=== PATIENT | female | born 1955 | race Caucasian/White ===

== ENCOUNTER 2016-12-23 19:30 | Observation (INO) | payer BC ==
[~2016-12-23] VITALS: Ht 160 cm; Wt 95.8 kg
[~2016-12-23 19:30] MED LIST: ACET-2321 PO; ALBU8.5H3 INH; ALLO300T74 PO; ENAL5TAB85 PO; FLUT16SP2 EA NOSTRIL; MELO-267 PO; OXYC-544 PO; POTA10CA37 PO; VENL100T4 PO; [UNRECOGNIZED DRUG - CODE] PO
--- OUTSIDE RECORDS SUMMARY | 2016-12-23 20:37 | XMS REPORT | CCD ---
Author Author IGLESIA ROCHA Organization Unknown Address [address], [place] [id number] Phone 0 Care Team Providers Care Credit Representative Name Role Phone DOLLY PINTO Attending Physician 0 Vital Signs Unknown or Not Available. Allergies Allergy Code Allergy Type Reaction Status PENICILLIN 99651 Drug allergy Active Procedures Unknown or Not Available. History of Immunizations Immunization Code Date influenza, unspecified formulation 88 Problems Unknown or Not Available. Results UA AUTO W/ MICRO - Collect Date/Time: 07/26/2016 14:54 Test Name Code Test Result Test Units Test Ref Range COLOR Yellow N/A NORMAL: Yellow APPEARANCE Clear N/ A NORMAL: Clear GLUCOSE Negative N/ A NORMAL: Negative BILIRUBIN Negative N /A NORMAL: Negative KETONE Negative N/A NORMAL: Negative SPEC GRAVITY 1.025 N /A NORMAL: 1.005-1.030 BLOOD Negative N/A NORMAL: Negative PROTEIN Negative N/ A NORMAL: Negative PH 5.5 N/A NORMAL: 5.0-8.0 UROBILINOGEN 0.2 N/ A NORMAL: Negative NITRITE Negative N/ A NORMAL: Negative LEUKOCYTES Negative N/A NORMAL: Negative MICRO RBC None Seen N/A NORMAL: 0-2 MICRO WBC 0-2 N/A NORMAL: 0-2 BACTERIA Trace N/A NORMAL: None-Trace EPI CELLS 0-5 N/A NORMAL: 0-15 MUCUS None Seen N/A NORMAL: None-Small AMORPHOUS None Seen N/A NORMAL: None Seen YEAST None Seen N/A NORMAL: None Seen CRYSTALS None Seen N /A NORMAL: None Seen CAST None Seen N/A NORMAL: None Seen URINE CULTURE? NO N/ A Active Medications Unknown or Not Available. Medications Administered During Visit Unknown or Not Available. Encounters Encounter Diagnosis Diagnosis Code Start Date Dysuria R300 07/26/2016 Social History Smoking Status Code Start Date End Date Never smoker [id number] Patient Decision Aids Unknown or Not Available. Discharge Instructions You were admitted to [facility] on 07/26/2016 14:51 with a principal diagnosis of Dysuria You had the following tests done: UA AUTO W/ MICRO You were discharged from [facility] on 07/26/2016 14:51 Should you have any questions prior to discharge, please contact a member of your healthcare team. If you have left the hospital and have any questions, please contact your primary care physician. Chief Complaint and Reason For Visit Chief Complaint Date of Onset LAB Function Status Unknown or Not Available. Plan of Care Unknown or Not Available. Referral/Transition of Care Unknown or Not Available.
--- OUTSIDE RECORDS SUMMARY | 2016-12-23 20:37 | XMS REPORT | CCD ---
Author Author IGLESIA ROCHA Organization Unknown Address [address], [place] [id number] Phone 0 Care Team Providers Care Tank House Supervisor Name Role Phone DOLLY PINTO Attending Physician 0 [place] LAW Physician [phone] Vital Signs Unknown or Not Available. Allergies Allergy Code Allergy Type Reaction Status PENICILLIN 34240 Drug allergy Active Procedures Procedure Code Procedure Type Date CHEST [id number] 03/09/2016 History of Immunizations Immunization Code Date influenza, unspecified formulation 88 Problems Unknown or Not Available. Results BASIC METABOLIC - Collect Date/Time: 03/09/2016 11:25 Test Name Code Test Result Test Units Test Ref Range GLUCOSE 125 mg/dL L=70 H=110 BUN 17 mg/dL L=7 H=18 CREATININE 1.22 mg/ dL L=0.60 H=1.30 AGE 60 YEARS GFR 44.7 SODIUM 138 mmol/L L=136 H=145 POTASSIUM 4.4 mmol/ L L=3.5 H=5.1 CHLORIDE 101 mmol/L L=98 H=107 CO2 26 mmol/L L=21 H=32 CALCIUM 8.5 mg/dL L=8.5 H=10.1 CBC W/ DIFF - Collect Date/Time: 03/09/2016 11:25 Test Name Code Test Result Test Units Test Ref Range WBC 17.2 x10^3 L=4.8 H=10.8 RBC 4.28 x10^6 L=4.20 H=5.40 HEMOGLOBIN 13.3 g/ dL L=12.0 H=16.0 HEMATOCRIT 40.7 % L=37.0 H=47.0 MCV 95 fL L=80 H=100 MCH 31.1 pg L=27.0 H=33.0 MCHC 32.8 g/dL L=33.0 H=37.0 RDW 15.0 % L=11.5 H=14.5 PLATELETS 477 x10^3 L=150 H=450 MPV 6.0 fL L=7.8 H=11.0 SEG 73 %% L=40 H=80 BAND 6 %% L=0 H=5 LYMPH 10 %% L=20 H=45 MONO 7 %% L=0 H=10 EOS 2 %% L=0 H=5 BASO 2 %% L=0 H=2 ATYP LYMPH 0 %% L=0 H=10 META 0 %% L=0 H=1 REFLEX MAN DIFF YES N/A RBC MORPHOLOGY SEE BELOW N/A ANISO SLIGHT N/A NORMAL: NONE SEEN POIK NONE SEEN N/A NORMAL: NONE SEEN HYPO SLIGHT N/A NORMAL: NONE SEEN MICRO NONE SEEN N/A NORMAL: NONE SEEN MACRO NONE SEEN N/A NORMAL: NONE SEEN POLY NONE SEEN N/A NORMAL: NONE SEEN TOXIC GRAN NONE SEEN N/A NORMAL: NONE SEEN NUCLEATED RBC NONE SEEN N/A NORMAL: NONE SEEN PT/INR - Collect Date/Time: 03/09/2016 11:25 Test Name Code Test Result Test Units Test Ref Range PT 9.3 Secs L=9.4 H=11.0 INR 0.91 L=0.00 H=4.00 UA AUTO W/ MICRO - Collect Date/Time: 03/09/2016 11:30 Test Name Code Test Result Test Units Test Ref Range COLOR Yellow N/A NORMAL: Yellow APPEARANCE SlCloudy N/A NORMAL: Clear GLUCOSE Negative N/ A NORMAL: Negative BILIRUBIN Small N/A NORMAL: Negative KETONE Trace N/A NORMAL: Negative SPEC GRAVITY 1.020 N /A NORMAL: 1.005-1.030 BLOOD Negative N/A NORMAL: Negative PROTEIN 100 N/A NORMAL: Negative PH 6.0 N/A NORMAL: 5.0-8.0 UROBILINOGEN 0.2 N/ A NORMAL: Negative NITRITE Negative N/ A NORMAL: Negative LEUKOCYTES Negative N/A NORMAL: Negative MICRO RBC 0-2 N/A NORMAL: 0-2 MICRO WBC 0-2 N/A NORMAL: 0-2 BACTERIA 3+ N/A NORMAL: None-Trace EPI CELLS >30 N/A NORMAL: 0-15 MUCUS Trace N/A NORMAL: None-Small AMORPHOUS None Seen N/A NORMAL: None Seen YEAST None Seen N/A NORMAL: None Seen CRYSTALS None Seen N /A NORMAL: None Seen CAST Hyaline C N/A NORMAL: None Seen URINE CULTURE? NO N/ A VITAMIN D (25-HYDROXY) - Collect Date/Time: 03/09/2016 11:25 Test Name Code Test Result Test Units Test Ref Range Vitamin D, 25-Hydroxy 36567-7 26.2 ng/mL 30.0-100.0 Active Medications Unknown or Not Available. Medications Administered During Visit Unknown or Not Available. Encounters Encounter Diagnosis Diagnosis Code Start Date Encounter for other preprocedural examination [id number] 03/09/2016 Social History Smoking Status Code Start Date End Date Never smoker [id number] Patient Decision Aids Unknown or Not Available. Discharge Instructions You were admitted to [facility] on 03/09/2016 11:15 with a principal diagnosis of Encounter for other preprocedural examination You had the following tests done: BASIC METABOLIC CBC W/ DIFF PT/INR UA AUTO W/ MICRO VITAMIN D (25-HYDROXY) You were discharged from [facility] on 03/09/2016 11:15 Should you have any questions prior to discharge, please contact a member of your healthcare team. If you have left the hospital and have any questions, please contact your primary care physician. Chief Complaint and Reason For Visit Chief Complaint Date of Onset LAB XR CHEST EKG PREOP Function Status Unknown or Not Available. Plan of Care Unknown or Not Available. Referral/Transition of Care Unknown or Not Available.
--- OUTSIDE RECORDS SUMMARY | 2016-12-23 20:37 | XMS REPORT | CCD ---
Author Author IGLESIA ROCHA Organization Unknown Address [address], [place] [id number] Phone 0 Care Team Providers Care Production Proofreader Name Role Phone STEPHANIA CENTENO Attending Physician 0 Vital Signs Unknown or Not Available. Allergies Allergy Code Allergy Type Reaction Status PENICILLIN 90943 Drug allergy Active Procedures Unknown or Not Available. History of Immunizations Immunization Code Date influenza, unspecified formulation 88 Problems Unknown or Not Available. Results Unknown or Not Available. Active Medications Unknown or Not Available. Medications Administered During Visit Unknown or Not Available. Encounters Encounter Diagnosis Diagnosis Code Start Date Displaced fracture of fifth metatarsal bone, left foot, initial encounter for closed fracture [id number] 08/13/2015 Social History Smoking Status Code Start Date End Date Never smoker [id number] Patient Decision Aids Unknown or Not Available. Discharge Instructions [facility] were admitted to [facility] on 08/13/2015 with a principal diagnosis of Displaced fracture of fifth metatarsal bone, left foot, initial encounter for closed fracture. You were discharged from [facility] on 08/13/2015. Should you have any questions prior to discharge, please contact a member of your healthcare team. If you have left the hospital and have any questions, please contact your primary care physician. Chief Complaint and Reason For Visit Unknown or Not Available. Function Status Unknown or Not Available. Plan of Care Unknown or Not Available. Referral/Transition of Care Unknown or Not Available.
--- OUTSIDE RECORDS SUMMARY | 2016-12-23 20:37 | XMS REPORT | CCD ---
Author Author ANEUDY AYALA Organization Unknown Address [address], [place] [id number] Phone 0 Care Team Providers Care Stained Glass Artist Name Role Phone CHRIS CARVER Attending Physician [phone] Vital Signs Unknown or Not Available. Allergies Allergy Code Allergy Type Reaction Status PENICILLIN 11583 Drug allergy Active Procedures Unknown or Not Available. History of Immunizations Immunization Code Date influenza, unspecified formulation 88 Problems Unknown or Not Available. Results Unknown or Not Available. Active Medications Unknown or Not Available. Medications Administered During Visit Unknown or Not Available. Encounters Unknown or Not Available. Social History Smoking Status Code Start Date End Date Never smoker [id number] Patient Decision Aids Unknown or Not Available. Discharge Instructions You were admitted to [facility] on 09/26/2014. Should you have any questions prior to discharge, please contact a member of your healthcare team. If you have left the hospital and have any questions, please contact your primary care physician. Chief Complaint and Reason For Visit Chief Complaint Date of Onset RECURRING PHT Function Status Unknown or Not Available. Plan of Care Unknown or Not Available. Referral/Transition of Care Unknown or Not Available.
--- OUTSIDE RECORDS SUMMARY | 2016-12-23 20:37 | XMS REPORT | CCD ---
Author Author ANEUDY AYALA Organization Unknown Address [address], [place] [id number] Phone 0 Care Team Providers Care Helicopter Engineer Name Role Phone Perry MARTE Attending Physician 0 Vital Signs Unknown or Not Available. Allergies Allergy Code Allergy Type Reaction Status PENICILLIN 66486 Drug allergy Active Procedures Unknown or Not Available. History of Immunizations Immunization Code Date influenza, unspecified formulation 88 Problems Unknown or Not Available. Results COMP METABOLIC - Collect Date/Time: 10/23/2014 10:01 Test Name Code Test Result Test Units Test Ref Range GLUCOSE 113 mg/dL L=70 H=110 BUN 13 mg/dL L=7 H=18 CREATININE 1.10 mg/ dL L=0.60 H=1.30 AGE 59 YEARS GFR 53.7 SODIUM 138 mmol/L L=136 H=145 POTASSIUM 4.6 mmol/ L L=3.5 H=5.1 CHLORIDE 105 mmol/L L=98 H=107 CO2 20 mmol/L L=21 H=32 CALCIUM 9.2 mg/dL L=8.5 H=10.1 AST 47 U/L L=15 H=37 ALT 37 U/L L=12 H=78 ALKALINE PHOS 161 U/ L L=50 H=136 TOTAL PROTEIN 7.5 g/ dL L=6.4 H=8.2 ALBUMIN 3.3 g/dL L=3.4 H=5.0 TOTAL BILI 0.50 mg/ dL L=0.00 H=1.00 CORRECT TG 10/23/14 N /A LIPASE - Collect Date/Time: 10/23/2014 10:01 Test Name Code Test Result Test Units Test Ref Range LIPASE 172 U/L L=73 H=393 CBC W/ DIFF - Collect Date/Time: 10/23/2014 10:01 Test Name Code Test Result Test Units Test Ref Range WBC 14.6 x10^3 L=4.8 H=10.8 RBC 4.55 x10^6 L=4.20 H=5.40 HEMOGLOBIN 14.3 g/ dL L=12.0 H=16.0 HEMATOCRIT 43.4 % L=37.0 H=47.0 MCV 95 fL L=80 H=100 MCH 31.4 pg L=27.0 H=33.0 MCHC 32.9 g/dL L=33.0 H=37.0 RDW 14.1 % L=11.5 H=14.5 PLATELETS 339 x10^3 L=150 H=450 MPV 7.2 fL L=7.8 H=11.0 NEUTROPHILS 70.5 % L=40.0 H=80.0 LYMPHOCYTES 16.5 % L=20.0 H=45.0 MONOCYTES 9.3 % L=0.0 H=10.0 EOSINOPHILS 3.6 % L=0.0 H=5.0 BASOPHILS 0.1 % L=0.0 H=2.0 REFLEX MAN DIFF NO N /A Active Medications Unknown or Not Available. Medications Administered During Visit Unknown or Not Available. Encounters Encounter Diagnosis Diagnosis Code Start Date ABDOMINAL PAIN, UNSPECIFIED SITE 80798 Social History Smoking Status Code Start Date End Date Never smoker [id number] Patient Decision Aids Unknown or Not Available. Discharge Instructions You were admitted to [facility] on 10/23/2014 with a principal diagnosis of ABDOMINAL PAIN, UNSPECIFIED SITE. You were discharged from [facility] on 10/23/2014. Should you have any questions prior to [...]
--- OUTSIDE RECORDS SUMMARY | 2016-12-23 20:37 | XMS REPORT | Referral Summary ---
Author Author [facility] Organization [facility] Address Unknown Phone Unavailable Care Team Providers Care Personnel Specialist Name Role Phone Perry Alvarez Primary Care Physician [phone] Encounter [facility] [id number] Date(s): 06/09/16 - 06/09/16 [facility] [address] [place] [address] [facility] Discharge Diagnosis: Allergic conjunctivitis Discharge Diagnosis: Dermatographia Discharge Diagnosis: Nonallergic rhinitis Discharge Diagnosis: Intermittent asthma Discharge Diagnosis: Allergic rhinitis Discharge Diagnosis: GE reflux Discharge Disposition: 01-Home or Self Care Attending Physician: Bob Judge MD Admitting Physician: Bob Judge MD Vital Signs Most recent to 1 oldest [Reference Range]: Blood Pressure 136/80 mmHg [90-140/60-90 mmHg] (06/09/16 1:17 PM) Problem List Condition Effective Dates Status Health Status Informant Cervical spine Active arthritis(Confirmed) Hypertension(Confirm Active ed) Type II diabetes Active mellitus(Confirmed) Allergies, Adverse Reactions, Alerts Substance Reaction Severity Status Lortab Active Medications allopurinol 0 Refill(s) Start Date: 06/09/16 Status: Ordered Effexor XR Oral, Daily, 0 Refill(s) Start Date: 06/09/16 Status: Ordered enalapril 0 Refill(s) Start Date: 06/09/16 Status: Ordered Percodan 4.8355 mg-325 mg oral tablet tabs, Oral, q6hr, 0 Refill(s) Start Date: 06/09/16 Status: Ordered Singulair Daily, 0 Refill(s) Start Date: 06/09/16 Status: Ordered Results No data available for this section Immunizations No data available for this section Procedures Procedure Date Related Diagnosis Body Site Fusion of joint of cervical spine by anterior 05/12/16 approach for deformity of cervical spine1 1Performed by Dr. Pickard at [facility] Social History Social History Type Response Smoking Status Never smoker Assessment and Plan Referrals to Other Providers Referred by: Bob Judge MD
--- OUTSIDE RECORDS SUMMARY | 2016-12-23 20:37 | XMS REPORT | Continuity of Care Document ---
Author Author [facility] Organization [facility] Address Unknown Phone Unavailable Care Team Providers Care Building Rental Manager Name Role Phone SIDNEY, GONZALEZ Primary Care Physician [phone] Insurance Providers Payer Name Policy Number Subscriber Name Relationship [facility] [id number] Davidson Paige F 01 Spouse Advance Directives Directive Response Recorded Date/Time Ordered Resuscitation Status Full Code 09/22/14 5:19pm Resuscitation Documents on File No 09/22/14 9:18am Chief Complaint and Reason for Visit Chief Complaint BILATERAL TOTAL KNEE Reason for Visit Degenerative arthritis of left knee Degenerative arthritis of right knee DMII (diabetes mellitus, type 2) Obesity (BMI 30-39.9) Hx MRSA infection Leukocytosis Problems Medical Problems Problem Onset Date Status Degenerative arthritis of left knee Unknown Active Degenerative arthritis of right knee Unknown Active DMII (diabetes mellitus, type 2) Unknown Active Obesity (BMI 30-39.9) Unknown Active Hx MRSA infection Unknown Resolved Hypertension Unknown Active Asthma Unknown Active Leukocytosis Unknown Active Medications Medication Dose Route Sig Days/Qty Instructions Order Date Discontinued Date Status Allopurinol 300 Mg PO BEDTIME 10/14/08 Active Enalapril Maleate 5 Mg PO BEDTIME 10/14/08 Active Estrogens,Conjugated 0.9 Mg PO BEDTIME 10/14/08 Active Etodolac 400 Mg PO BEDTIME 10/14/08 09/24/14 Discontinued Cetirizine Hcl 10 Mg PO DAILY 10/14/08 Active Acetaminophen 325 Mg PO PRN 2 TABS 10/14/08 09/24/14 Discontinued Fexofenadine Hcl 30 Mg PO DAILY 01/19/11 Active [Albuterol] 01/19/11 09/22/14 Discontinued Albuterol Sulfate 1 Puff INH NEEDED 09/22/14 Active Fluticasone Propionate 2 [facility] NOSTRIL DAILY 09/23/14 Active Potassium Chloride 10 Meq PO DAILY Take 1 capsule, by mouth, two times a day with meals 09/23/14 Active Oxycodone HCl/Acetaminophen 7.5 Mg PO BEDTIME 09/23/14 09/24/14 Discontinued Spironolactone 25 Mg PO TWICE A DAY Take 1 tablet, by mouth, 2 times a day. 09/23/14 Active Meloxicam 15 Mg PO DAILY 09/23/14 Active Acetaminophen 650 Mg PO FOUR TIMES DAILY 100 Qty 09/24/14 Active Aspirin 325 Mg PO TWICE A DAY 60 Qty 09/24/14 Active Oxycodone HCl 5-15 Mg PO Every 3 Hours PRN BREAKTHROUGH PAIN 60 Qty 06/28 Active Docusate Sodium 1 Cap PO TWICE A DAY 30 Qty 09/24/14 Active Social History Social History Problem Response Recorded Date/Time Chewing Tobacco Status No 09/02/2014 3:03pm Hx Substance Use No 01/19/2011 11:20am Hx Alcohol Use Y 2 X MONTH, SOCIALLY 01/19/2011 11:20am Has the pt used tobacco in the last 12 months No 09/23/2014 3:42pm Query Response Start Date Stop Date Smoking Status Never smoker Hospital Discharge Instructions Instructions: Care Instructions: Reason for Hospitalization: bilateral knee replacements I was in the hospital because (patient own words): (PER ) SHE IS HAVING BOTH KNEES REPLACED Discharge Diet: 1999 kate ADA diet Discharge Activity: WBAT Follow Up Appointments: [facility] 09-26 AT 3:00PM FOR PHYSICAL THERAPY EVAL. PHONE [phone] Follow up appointment with Dr Rubio October 15, 2014 at 9:45am. Patient Instructions: Please make a follow up with your family physician to further evaluated you for treatment of diabetes, and implement diabetic counseling Wound/Incision Care: keep dressings on, you may shower but do not immerse your dressing in a bath. Condition at time of discharge: Good Band-aids. - You may remove your Band-aids after 24 hours. - Leave the Steri-strips in place until they fall off on their own. - You may shower after 24 hours. - No tub baths or swimming for 2 weeks. Notify Physician If: Contact Dr. Anders if any of the following occur: - Your pain is not adequately controlled. - You have persistent nausea or vomiting for more than 24 hours. - You have a fever over 101.5 degrees. - You develop redness, swelling, increasing pain, excessive bleeding, or excessive/foul smelling drainage at your incision site. - You develop dark urine, light stools, or yellowing of the skin or eyes. - You have pain and/or swelling in your feet, calves, or legs. - You have difficulty breathing, abnormal cough, or chest pain. Condition at time of discharge: Good Plan of Care Discharge Date 09/24/14 4:15pm Disposition 01 DISCHARGED HOME, SELF-CARE Instructions/Education Provided [facility] Postop Instructions Prescriptions See Medications Section Functional Status Query Response Date Recorded Physical Hygiene Self September 24, 2014 3:33pm Disabilities None September 24, 2014 3:33pm Devices Used Walker September 24, 2014 3:33pm Dressing Self September 24, 2014 3:33pm Ambulation Self September 24, 2014 3:33pm Diet Self September 24, 2014 3:33pm Mental Status Alert Oriented September 24, 2014 3:33pm Disabilities None September 24, 2014 3:33pm Devices Used Walker September 24, 2014 3:33pm Physical Hygiene Self September 24, 2014 3:33pm Dressing Self September 24, 2014 3:33pm Ambulation Self September 24, 2014 3:33pm Diet Self September 24, 2014 3:33pm Allergies, Adverse Reactions, Alerts Allergen Type Severity Reaction Status Last Updated Penicillin Allergy Intermediate HIVES Active 09/25/08 Hydrocodone Allergy Unknown ITCHING Active 09/18/14 Immunizations Name Given Type Hx Influenza Vaccination Y Historical Hx Pneumococcal Vaccination No Historical Hx Influenza Vaccination Y Historical Vital Signs Acute Vital Signs Vital Response Date/Time Temperature (Fahrenheit) 97.6 deg F (96.8 - 99.1) Temperature (Calculated Celsius) 36.48657 degrees C (36.0 - 37.3) Pulse Rate (adult) 102 bpm (60 - 100) Respiratory Rate 24 breaths/min (10 - 20) O2 Sat by Pulse Oximetry 95 % (90 - 100) Oxygen Delivery Method Room Air Blood Pressure 141/67 mm Hg Blood Pressure Source Automatic Cuff Height 5 ft 3 in Weight 210 lb Body Mass Index 37.0 kg/m^2 Results Test Source Date Result Interp. Ref. Range Comments Activated Partial Thromboplast Time January 19, 2011 1:20pm 23.6 SEC L 24- 36 Alanine Aminotransferase (ALT/SGPT) September 26, 2008 11:50am 19 U/L N 9 -52 COMMENT TO SCU AT 1100 Albumin September 26, 2008 11:50am 3.5 G/DL N 3.5-5.0 COMMENT TO SCU AT 1100 Albumin/Globulin Ratio September 26, 2008 11:50am 1.1 RATIO N 1.1-2.2 COMMENT TO SCU AT 1100 Alkaline Phosphatase September 26, 2008 11:50am 112 U/L N 38-126 COMMENT TO SCU AT 1100 Anion Gap September 24, 2014 4:56am 8 MEQ/L N 5-15 Aspartate Amino Transf (AST/SGOT) September 26, 2008 11:50am 16 U/L N 14- 36 COMMENT TO SCU AT 1100 BUN/Creatinine Ratio September 24, 2014 4:56am 18 RATIO N 6-26 Basophils # (Auto) October 14, 2008 8:30am 0.0 T/MM3 N 0-0.2 Basophils (%) (Auto) October 14, 2008 8:30am 0.3 % N 0-2 Blood Urea Nitrogen September 24, 2014 4:56am 18.0 MG/DL H 7-17 Calcium Level September 24, 2014 4:56am 8.2 MG/DL DL 8.4-10.2 Calculated Osmolality September 24, 2014 4:56am 266 MOSM/KG N 261-280 Carbon Dioxide Level September 24, 2014 4:56am 23 MEQ/L N 22-30 Chemistry Specimen Hemolysis September 24, 2014 4:56am < 15 0-25 0-25 : No Hemolysis.26-70: Slight Hemolysis - can falsely elevate K and Urine Protein. 71-285: Moderate Hemolysis - can falsely elevate K, Troponin I, CA 19-9, PTH, CSF GLucose, and Urine Protein, and can falsely decrease Phenytoin. 286-999: Gross Hemolysis - can falsely elevate K, Troponin I, CA 19-9, PTH, CSF Glucose, and Urine Protine, and can falsely decrease Phenytoin. Recommend specimen recollection. Chloride Level September 24, 2014 4:56am 104 MEQ/L N 98-107 Creatinine September 24, 2014 4:56am 1.0 MG/DL N 0.7-1.2 EKG September 26, 2008 11:50am Complete - COMMENT TO SCU AT 1100 Eosinophils # (Auto) October 14, 2008 8:30am 0.4 T/MM3 N 0-0.5 Eosinophils # (Manual) September 23, 2014 8:17am 0.2 T/MM3 N 0-0.5 COMMENT PREOP Eosinophils % (Manual) September 23, 2014 8:17am 1.0 % N 0-4 COMMENT PREOP Eosinophils (%) (Auto) October 14, 2008 8:30am 3.5 % N 0-4 Globulin September 26, 2008 11:50am 3.1 G/DL N 2.4-3.6 COMMENT TO SCU AT 1100 Glomerular Filtration Rate Calc September 24, 2014 4:56am 56 - Glucometer September 24, 2014 2:25pm 162 mg/dL H 65-110 Glucose Level September 24, 2014 4:56am 174 MG/DL H 65-110 Hematocrit September 24, 2014 4:56am 34.2 % L 36-46 Hemoglobin September 24, 2014 4:56am 11.1 GM/DL DL 12-16 Hemoglobin A1c September 24, 2014 4:56am 6.6 % N 6-7 <6.0 NON-DIABETIC RANGE6.0-7.0 ADA THERAPEUTIC RANGE >7.0 ACTION SUGGESTED Icterus Index September 24, 2014 4:56am < 2 0-7 Lab Scanned Report January 23, 2011 4:10pm REFERENCE LAB [id number] - Lymphocytes # (Auto) October 14, 2008 8:30am 1.6 T/MM3 N 1-4.8 Lymphocytes # (Manual) September 23, 2014 8:17am 2.4 T/MM3 N 1-4.8 COMMENT PREOP Lymphocytes % (Manual) September 23, 2014 8:17am 14.0 % L 23-45 COMMENT PREOP Lymphocytes (%) (Auto) October 14, 2008 8:30am 16.1 % L 23-45 MRSA Specimen Source August 26, 2014 1:26pm Nasal - COMMENT V74.8 Mean Corpuscular Hemoglobin September 24, 2014 4:56am 32.2 UUG N 26-34 Mean Corpuscular Hemoglobin Concent September 24, 2014 4:56am 32.5 GM/DL N 31-37 Mean Corpuscular Volume September 24, 2014 4:56am 99.1 UM3 N 80-100 Mean Platelet Volume September 24, 2014 4:56am 9.1 UM3 L 9.4-12.4 Methicillin-Resist S.aureus DNA PCR August 26, 2014 1:26pm Negative - COMMENT V74.8 Monocytes # (Auto) October 14, 2008 8:30am 0.8 T/MM3 N 0-0.8 Monocytes # (Manual) September 23, 2014 8:17am 0.7 T/MM3 N 0-0.8 COMMENT PREOP Monocytes % (Manual) September 23, 2014 8:17am 4.0 % N 0-9.0 COMMENT PREOP Monocytes (%) (Auto) October 14, 2008 8:30am 7.8 % N 0-9.0 Neutrophils # (Auto) October 14, 2008 8:30am 7.2 T/MM3 N 1.8-7.7 Neutrophils # (Manual) September 23, 2014 8:17am 13.9 T/MM3 H 1.8-7.7 COMMENT PREOP Neutrophils % (Manual) September 23, 2014 8:17am 81.0 % H 33-66 COMMENT PREOP Neutrophils (%) (Auto) October 14, 2008 8:30am 72.3 % H 33-66 Platelet Count September 24, 2014 4:56am 337 T/MM3 N 130-400 Potassium Level September 24, 2014 4:56am 4.8 MEQ/L DN 3.6-5 Prothromb Time International Ratio January 19, 2011 1:20pm 1.03 N 0.86- 1.10 THERAPUTIC RANGE=2.00-3.00 FOR ANTI-THROMBOSIS THERAPUTIC RANGE=2.50- 3.50 FOR IMPLANTED VALVE RDW Standard Deviation September 24, 2014 4:56am 50.1 FL N 36.9-50.2 Red Blood Count September 24, 2014 4:56am 3.45 M/MM3 L 4.00-5.20 Sodium Level September 24, 2014 4:56am 135 MEQ/L DN 134-144 Stone Analysis (T) January 19, 2011 4:50pm Ref lab rpt scanned - --- 1627 ---STONE previously reported as: SEND OUT Total Bilirubin September 26, 2008 11:50am 0.13 MG/DL L 0.20-1.30 COMMENT TO SCU AT 1100 Total Protein September 26, 2008 11:50am 6.6 G/DL N 6.3-8.2 COMMENT TO SCU AT 1100 Turbidity September 24, 2014 4:56am < 20 0-20 Urinalysis Comment September 23, 2014 8:05am Microscopic not ind. - COMMENT C&S IF INDICATEDHas specimen been collected/obtained? Y Urine Bilirubin September 23, 2014 8:05am Negative - COMMENT C&S IF INDICATEDHas specimen been collected/obtained? Y Urine Blood September 23, 2014 8:05am Negative - COMMENT C&S IF INDICATEDHas specimen been collected/obtained? Y Urine Collection Type September 23, 2014 8:05am Cleancatch-midstream - COMMENT C&S IF INDICATEDHas specimen been collected/obtained? Y Urine Color September 23, 2014 8:05am Yellow - COMMENT C&S IF INDICATEDHas specimen been collected/obtained? Y Urine Glucose (UA) September 23, 2014 8:05am Negative - COMMENT C&S IF INDICATEDHas specimen been collected/obtained? Y Urine Ketones September 23, 2014 8:05am Negative - COMMENT C&S IF INDICATEDHas specimen been collected/obtained? Y Urine Leukocyte Esterase September 23, 2014 8:05am Negative - COMMENT C&S IF INDICATEDHas specimen been collected/obtained? Y Urine Nitrite September 23, 2014 8:05am Negative - COMMENT C&S IF INDICATEDHas specimen been collected/obtained? Y Urine Protein September 23, 2014 8:05am Negative - COMMENT C&S IF INDICATEDHas specimen been collected/obtained? Y Urine Specific [place] September 23, 2014 8:05am 1.020 - COMMENT C&S IF INDICATEDHas specimen been collected/obtained? Y Urine Turbidity September 23, 2014 8:05am Clear - COMMENT C&S IF INDICATEDHas specimen been collected/obtained? Y Urine Urobilinogen September 23, 2014 8:05am 0.2 EU/DL - COMMENT C&S IF INDICATEDHas specimen been collected/obtained? Y Urine pH September 23, 2014 8:05am 6.0 - COMMENT C&S IF INDICATEDHas specimen been collected/obtained? Y White Blood Count September 24, 2014 4:56am 22.6 T/MM3 H 4.5-11.0 Name: NOA PAIGE Unit #: [id number] : 1955 Sex: F Loc / Svc: MED DOS: Signed Report #: [id number] DIAGNOSTIC IMAGING REPORT TYPE OF EXAM: KNEE LEFT 2 VIEW Dictated By: JESSENIA RAM MD Indication: ITS.REASON: POSTOP Comparison: None Findings: Postoperative changes of left total knee replacement are seen. There is expected postoperative subcutaneous gas. No evidence of hardware failure or acute fracture. No retained radiopaque surgical instruments or sponges. Impression: New left total knee prosthesis without evidence of immediate complication. . Procedures Procedure Status Date Provider(s) MR-STAP DNA AMP PROBE completed 08/26/14 Total arthroplasty, knee, bilateral completed 09/23/14 NBA RUBIO MD Encounters Encounter Location Date/Time Discharged Inpatient [facility] 09/23/14 7:45am Registered Clinic [facility] 08/26/14 1:09pm Recent Diagnosis Degenerative arthritis of left knee Degenerative arthritis of right knee DMII (diabetes mellitus, type 2) Obesity (BMI 30-39.9) Hx MRSA infection Leukocytosis
--- OUTSIDE RECORDS SUMMARY | 2016-12-23 20:37 | XMS REPORT | CCD ---
Author Author IGLESIA ROCHA Organization Unknown Address [address], [place] [id number] Phone 0 Care Team Providers Care Reaming Press Operator Name Role Phone ARMAND GUERRA Attending Physician [phone] [place] LAW Rounding Physician [phone] Vital Signs Unknown or Not Available. Allergies Allergy Code Allergy Type Reaction Status PENICILLIN 59377 Drug allergy Active Procedures Unknown or Not Available. History of Immunizations Immunization Code Date influenza, unspecified formulation 88 Problems Unknown or Not Available. Results C-REACTIVE PROTEIN - Collect Date/Time: 05/09/2016 11:05 Test Name Code Test Result Test Units Test Ref Range CRP 20 mg/L L=0 H=5 COMP METABOLIC - Collect Date/Time: 05/09/2016 11:05 Test Name Code Test Result Test Units Test Ref Range GLUCOSE 130 mg/dL L=70 H=110 BUN 26 mg/dL L=7 H=18 CREATININE 1.34 mg/ dL L=0.60 H=1.30 AGE 61 YEARS GFR 39.9 SODIUM 135 mmol/L L=136 H=145 POTASSIUM 3.6 mmol/ L L=3.5 H=5.1 CHLORIDE 100 mmol/L L=98 H=107 CO2 26 mmol/L L=21 H=32 CALCIUM 8.6 mg/dL L=8.5 H=10.1 AST 9 U/L L=15 H=37 ALT 12 U/L L=12 H=78 ALKALINE PHOS 107 U/ L L=50 H=136 TOTAL PROTEIN 6.7 g/ dL L=6.4 H=8.2 ALBUMIN 3.0 g/dL L=3.4 H=5.0 TOTAL BILI 0.30 mg/ dL L=0.00 H=1.00 LDH - Collect Date/Time: 05/09/2016 11:05 Test Name Code Test Result Test Units Test Ref Range LDH 128 U/L L=81 H=234 MAGNESIUM - Collect Date/Time: 05/09/2016 11:05 Test Name Code Test Result Test Units Test Ref Range MAGNESIUM 1.5 mg/dL L=1.8 H=2.4 CBC W/ DIFF - Collect Date/Time: 05/09/2016 11:05 Test Name Code Test Result Test Units Test Ref Range WBC 16.5 x10^3 L=4.8 H=10.8 RBC 4.35 x10^6 L=4.20 H=5.40 HEMOGLOBIN 13.5 g/ dL L=12.0 H=16.0 HEMATOCRIT 41.7 % L=37.0 H=47.0 MCV 96 fL L=80 H=100 MCH 31.0 pg L=27.0 H=33.0 MCHC 32.4 g/dL L=33.0 H=37.0 RDW 13.5 % L=11.5 H=14.5 PLATELETS 399 x10^3 L=150 H=450 MPV 7.2 fL L=7.8 H=11.0 NEUTROPHILS 78.0 % L=40.0 H=80.0 LYMPHOCYTES 13.3 % L=20.0 H=45.0 MONOCYTES 6.5 % L=0.0 H=10.0 EOSINOPHILS 2.2 % L=0.0 H=5.0 BASOPHILS 0.0 % L=0.0 H=2.0 SEG 76 %% L=40 H=80 BAND 5 %% L=0 H=5 LYMPH 12 %% L=20 H=45 MONO 3 %% L=0 H=10 EOS 4 %% L=0 H=5 BASO 0 %% L=0 H=2 ATYP LYMPH 0 %% L=0 H=10 META 0 %% L=0 H=1 REFLEX MAN DIFF YES N/A RBC MORPHOLOGY NORMAL N/A SED RATE AUTO - Collect Date/Time: 05/09/2016 11:05 Test Name Code Test Result Test Units Test Ref Range SED RATE 7 mm/HR L=0 H=15 PT/INR - Collect Date/Time: 05/09/2016 11:05 Test Name Code Test Result Test Units Test Ref Range PT 9.9 Secs L=9.4 H=11.0 INR 0.97 L=0.00 H=4.00 UA AUTO W/ MICRO - Collect Date/Time: 05/09/2016 11:10 Test Name Code Test Result Test Units Test Ref Range COLOR Yellow N/A NORMAL: Yellow APPEARANCE SlCloudy N/A NORMAL: Clear GLUCOSE Negative N/ A NORMAL: Negative BILIRUBIN Negative N /A NORMAL: Negative KETONE Negative N/A NORMAL: Negative SPEC GRAVITY 1.025 N /A NORMAL: 1.005-1.030 BLOOD Moderate N/A NORMAL: Negative PROTEIN Negative N/ A NORMAL: Negative PH 5.5 N/A NORMAL: 5.0-8.0 UROBILINOGEN 0.2 N/ A NORMAL: Negative NITRITE Negative N/ A NORMAL: Negative LEUKOCYTES Trace N/ A NORMAL: Negative MICRO RBC 0-2 N/A NORMAL: 0-2 MICRO WBC 2-5 N/A NORMAL: 0-2 BACTERIA 1+ N/A NORMAL: None-Trace EPI CELLS >30 N/A NORMAL: 0-15 MUCUS Trace N/A NORMAL: None-Small AMORPHOUS None Seen N/A NORMAL: None Seen YEAST None Seen N/A NORMAL: None Seen CRYSTALS None Seen N /A NORMAL: None Seen CAST Hyaline C N/A NORMAL: None Seen URINE CULTURE? NO N/ A FREE KAPPA & LAMBDA LT. CHAINS, SERUM - Collect Date/Time: 05/09/2016 11:05 Test Name Code Test Result Test Units Test Ref Range [place] [address]-2 33.00 mg/L 3.30-19.40 [place] [address]-4 25.57 mg/L 5.71-26.30 [place]/Lambda Ratio,S 25102-4 1.29 0.26-1.65 IMMUNOGLOBULIN A, QUANT SERUM - Collect Date/Time: 05/09/2016 11:05 Test Name Code Test Result Test Units Test Ref Range Immunoglobulin A, Qn,Serum 2458-8 262 mg/dL 87-352 IMMUNOGLOBULIN G, QUANT, SERUM - Collect Date/Time: 05/09/2016 11:05 Test Name Code Test Result Test Units Test Ref Range Immunoglobulin G, Qn,Serum 2465-3 772 mg/dL 700-1600 IMMUNOGLOBULIN M, QUANT, SERUM - Collect Date/Time: 05/09/2016 11:05 Test Name Code Test Result Test Units Test Ref Range Immunoglobulin M, Qn,Serum 2472-9 100 mg/dL 26-217 PROTEIN ELECTROPHORESIS, SERUM - Collect Date/Time: 05/09/2016 11:05 Test Name Code Test Result Test Units Test Ref Range Protein, Total, Serum 2885-2 6.0 g/dL 6.0-8.5 Albumin 2862-1 2.9 g/ dL 2.9-4.4 Fkjms-7-Ssalfgos 2865-4 0.3 g/dL 0.0-0.4 Aplzl-7-Hkbkyhvz 2868-8 0.9 g/dL 0.4-1.0 Beta Globulin 2871-2 1.2 g/dL 0.7-1.3 Gamma Globulin 2874-6 0.8 g/dL 0.4-1.8 Globulin, Total 89515-2 3.1 g/dL 2.2-3.9 A/G Ratio 1759-0 0.9 0.7-1.7 M-Haider 50742-7 Not Observed N/A Not Observed Active Medications Unknown or Not Available. Medications Administered During Visit Unknown or Not Available. Encounters Encounter Diagnosis Diagnosis Code Start Date Encounter for other preprocedural examination [id number] 05/09/2016 Social History Smoking Status Code Start Date End Date Never smoker [id number] Patient Decision Aids Unknown or Not Available. Discharge Instructions You were admitted to [facility] on 05/09/2016 10:53 with a principal diagnosis of Encounter for other preprocedural examination You had the following tests done: C- REACTIVE PROTEIN CBC W/ DIFF COMP METABOLIC FREE KAPPA & LAMBDA LT. CHAINS, SERUM IMMUNOGLOBULIN A, QUANT SERUM IMMUNOGLOBULIN G, QUANT, SERUM IMMUNOGLOBULIN M, QUANT, SERUM LDH MAGNESIUM PROTEIN ELECTROPHORESIS, SERUM PT/INR SED RATE AUTO UA AUTO W/ MICRO You were discharged from [facility] on 05/09/2016 10:53 Should you have any questions prior to [...]
--- OUTSIDE RECORDS SUMMARY | 2016-12-23 20:38 | XMS REPORT | CCD ---
Author ANEUDY Qiu Organization Unknown Address [address], [place] [id number] Phone 0 Care Team Providers Care Electric Switch Repairer Name Role Phone STEPHANIA CENTENO Attending Physician 0 Vital Signs Unknown or Not Available. Allergies Allergy Code Allergy Type Reaction Status PENICILLIN 97125 Drug allergy Active Procedures Unknown or Not Available. History of Immunizations Immunization Code Date influenza, unspecified formulation 88 Problems Unknown or Not Available. Results CBC W/ DIFF - Collect Date/Time: 09/12/2014 13:25 Test Name Code Test Result Test Units Test Ref Range WBC 15.0 x10^3 L=4.8 H=10.8 RBC 4.33 x10^6 L=4.20 H=5.40 HEMOGLOBIN 13.8 g/ dL L=12.0 H=16.0 HEMATOCRIT 40.5 % L=37.0 H=47.0 MCV 94 fL L=80 H=100 MCH 31.9 pg L=27.0 H=33.0 MCHC 34.1 g/dL L=33.0 H=37.0 RDW 13.6 % L=11.5 H=14.5 PLATELETS 356 x10^3 L=150 H=450 MPV 6.8 fL L=7.8 H=11.0 NEUTROPHILS 93.5 % L=40.0 H=80.0 LYMPHOCYTES 4.5 % L=20.0 H=45.0 MONOCYTES 0.8 % L=0.0 H=10.0 EOSINOPHILS 0.0 % L=0.0 H=5.0 BASOPHILS 1.2 % L=0.0 H=2.0 SEG 88 %% L=40 H=80 BAND 9 %% L=0 H=5 LYMPH 2 LC%% L=20 H=45 MONO 1 %% L=0 H=10 EOS 0 %% L=0 H=5 BASO 0 %% L=0 H=2 ATYP LYMPH 0 %% L=0 H=10 META 0 %% L=0 H=1 REFLEX MAN DIFF YES N/A RBC MORPHOLOGY NORMAL N/A UA AUTO W/ MICRO - Collect Date/Time: 09/12/2014 14:57 Test Name Code Test Result Test Units Test Ref Range COLOR Yellow N/A NORMAL: Yellow APPEARANCE Clear N/ A NORMAL: Clear GLUCOSE 100 N/A NORMAL: Negative BILIRUBIN Negative N /A NORMAL: Negative KETONE Trace N/A NORMAL: Negative SPEC GRAVITY >=1.030 N/A NORMAL: 1.005-1.030 BLOOD Trace-in N/A NORMAL: Negative PROTEIN 30 N/A NORMAL: Negative PH 5.5 N/A NORMAL: 5.0-8.0 UROBILINOGEN 0.2 N/ A NORMAL: Negative NITRITE Negative N/ A NORMAL: Negative LEUKOCYTES Negative N/A NORMAL: Negative MICRO RBC 10-20 N/A NORMAL: 0-2 MICRO WBC 5-10 N/A NORMAL: 0-2 BACTERIA 1+ N/A NORMAL: None-Trace EPI CELLS 15-30 N/A NORMAL: 0-15 MUCUS Small N/A NORMAL: None-Small AMORPHOUS None Seen N/A NORMAL: None Seen YEAST Trace N/A NORMAL: None Seen CRYSTALS None Seen N /A NORMAL: None Seen CAST None Seen N/A NORMAL: None Seen URINE CULTURE? YES N /A Active Medications Unknown or Not Available. Medications Administered During Visit Unknown or Not Available. Encounters Unknown or Not Available. Social History Smoking Status Code Start Date End Date Never smoker [id number] Patient Decision Aids Unknown or Not Available. Discharge Instructions You were admitted to [facility] on 09/12/2014. You were discharged from [facility] on 09/12/2014. Should you have any questions prior to [...]
--- OUTSIDE RECORDS SUMMARY | 2016-12-23 20:38 | XMS REPORT | CCD ---
Author Author IGLESIA ROCHA Organization Unknown Address [address], [place] [id number] Phone 0 Care Team Providers Care Ore Crusher Name Role Phone DOLLY PINTO Attending Physician 0 [place] LAW Physician [phone] Vital Signs Unknown or Not Available. Allergies Allergy Code Allergy Type Reaction Status PENICILLIN 65003 Drug allergy Active Procedures Procedure Code Procedure Type Date CHEST [id number] 03/09/2016 History of Immunizations Immunization [...] Units Test Ref Range Vitamin D, 25-Hydroxy 30789-4 26.2 ng/mL 30.0-100.0 Active Medications Unknown or Not Available. Medications Administered During Visit Unknown or Not Available. Encounters Encounter Diagnosis Diagnosis Code Start Date Encounter for other preprocedural examination [id number] 03/09/2016 Social History Smoking Status Code Start Date End Date Never smoker [id number] Patient Decision Aids Unknown or Not Available. Discharge Instructions You were admitted to [facility] on 03/09/2016 11:15 with a principal diagnosis of Encounter for other preprocedural examination You had the following tests done: BASIC METABOLIC CBC W/ DIFF PT/INR UA AUTO W/ MICRO VITAMIN D (25-HYDROXY) You were discharged from [facility] on 03/09/2016 11:15 Should you have any [...]
--- OUTSIDE RECORDS SUMMARY | 2016-12-23 20:38 | XMS REPORT ---
Author Author LEONIE DIEZ [facility] and [facility] Address Unknown Phone Unavailable Care Team Providers Care Size Cutter Name Role Phone Dr. KWESI JAVED Primary Care Physician Unavailable Allergies Allergy Description Allergy Type PENICILLIN Drug allergy (disorder) Procedures Procedure Type Procedure Description Date Physicians No codified procedures found for this patient. Results RENAL FUNCTION PANEL Observation Test Name Observation Test Result Observation Test Units Observation Test Date Observation Test Time GLUCOSE 88 mg/dL 05/28 15:47 BUN 19 mg/dL 2012 15:47 CREATININE 1.10 mg/dL 05/28/2013 15:47 AGE 58 YEARS 2012 15:47 GFR 53.8 05/28/2013 15:47 SODIUM 140 mmol/L 15:47 POTASSIUM 4.2 mmol/L 05/28/2013 15:47 CHLORIDE 104 mmol/L 15:47 CO2 29 mmol/L 2012 15:47 CALCIUM 8.8 mg/dL 15:47 ALBUMIN 2.9 g/dL 05/28 15:47 PHOSPHORUS 2.5 mg/dL 05/28/2013 15:47 URIC ACID Observation Test Name Observation Test Result Observation Test Units Observation Test Date Observation Test Time URIC ACID 4.3 mg/dL 15:47 History of Immunizations Immunization Date influenza, unspecified formulation 05/13/2012 Plan of Care Item Text No plan of care items. Procedure Date/Time/Initials Critical? Status No plan of care procedures. Medication List Medication Dose Units Frequency Start Date/Time Status none Problem List Problem Entered Date Resolved Date No known problems
--- OUTSIDE RECORDS SUMMARY | 2016-12-23 20:38 | XMS REPORT | Continuity of Care Document ---
Demographics Preferred Language Unknown Marital Status Unknown [employer]ar[employer] Affiliation Unknown Race Unknown Ethnic Group Unknown Author Author [facility] Organization [facility] Address Unknown Phone Unavailable Allergies Active Description Code Type Severity Reaction Onset Reported/Identified Relationship to Patient Clinical Status Yes Penicillins [id number] Drug Allergy Moderate Hives 07/25/2012 Yes NORCO 95885 2 ITCHING 03/15/2016 Yes PENICILLIN 20259 2 ITCHING 03/15/2016 Medications Medication Packaging Start Date Stop Date Route Dosage Sig LACTATED RINGERS 1000 ML IV SOLN BAG 2016 2017 IV PRE-OP VANCOMYCIN 1GM INJ VL 2016 2017 PB PRE-OP MIDAZOLAM 2MG/2ML INJ VL 2016 2016 IV PRE-OP fentaNYL 100 MCG/2ML INJ AMP 2016 2016 IV PRE-OP SODIUM CHLORIDE 0.9% 10ML FLUSH SYRINGE SYR 03/22/20162016 IVP BID&0900,2100 POLYETHYLENE GLYCOL 17GM PKT PKT 2016 2017 PO QD& 0900 METHOCARBAMOL 750MG TABLET TAB 2016 2017 PO TID& 0900,1500,2200 DOCUSATE SODIUM 100MG CAPSULE CAP 2016 2017 PO BID& 0900,2100 * Ready to Reconcile EA 2016 2017 PO ASDIR LACTATED RINGERS 1000 ML IV SOLN BAG 2016 2016 IV ONCE SODIUM CHLORIDE 0.9% 1000ML IRRIG SOLN EA 03/22/20162015 IRR ONCE BUPIVACAINE W/ EPI 0.25% INJ [10 ML] VL 2016 2016 ID ONCE MORPHINE 2 MG/1ML SYRINGE ML 2016 2017 IVP [id number] MORPHINE 4MG/1ML SYRINGE ML 2016 2017 IVP [id number] SODIUM CHLORIDE 0.9% W/ KCL 20MEQ 1000ML IV SOLN BAG 2016 2017 IV 100ML/HR ONDANSETRON 4MG TABLET TAB 2016 2017 PO [id number] LORazepam 0.5MG TABLET TAB 2016 2017 PO Q4HPRN ONDANSETRON 4MG/2ML INJ VL 2016 2017 IVP T4ZUYZZE METOCLOPRAMIDE 10MG/2ML INJ VL 2016 2017 IVP [id number] MAGNESIUM HYDROXIDE 2400MG/30ML SUSP EA 2016 2017 PO PRN BISACODYL 10MG SUPPOS. SUP 2016 2017 OK* PRN ZOLPIDEM 5MG TABLET TAB 2016 2017 PO HSPRNI&2200 FAMOTIDINE 20 MG TABLET TAB 2016 2017 PO BIDPRNN BISACODYL 5MG TABLET TAB 2016 2017 PO PRN ACETAMINOPHEN 325MG TABLET TAB 2016 2017 PO Q4HPRN SODIUM CHLORIDE 0.9% 10ML FLUSH SYRINGE SYR 03/22/20162016 IVP PRN SODIUM CHLORIDE 0.9% 5ML FLUSH SYRINGE SYR 03/22/20162016 IVP PRN CEPACOL (BENZOCAINE/MENTHOL) LOZENGE VALE 2016 2017 BC Q4HPRN oxyCODONE/ACETAMINOPHEN 5-325 MG TABLET TAB 03/22/20162016 PO S1RLLPV PHENOL 1.4% THROAT SPRAY [118ML] EA 2016 2017 PO PRN *LIRAGLUTIDE 18 MG/3ML PEN EA 04/15/2016 04/15/2017 SQ QD&0900 *VENLAFAXINE ER 150MG CAPSULE CAP 04/15/2016 2016 PO QD& 0900 *MELOXICAM 15MG TABLET TAB 04/15/2016 04/15/2017 PO QD&0900 *ALLOPURINOL 300MG TABLET TAB 04/15/2016 2016 PO QD&0900 *MONTELUKAST 10MG TABLET TAB 04/15/2016 04/15/2017 PO QD&0900 *ESTRADIOL 1MG TABLET TAB 04/15/2016 04/15/2017 PO QD&0900 *ENALAPRIL 10MG TABLET TAB 04/15/2016 2016 PO HS&2200 *SIMVASTATIN 40MG TABLET TAB 04/15/2016 2016 PO HS&2200 * DONT RECONCILE--CHANGE PENDING EA 04/15/2016 2016 PO PRN *OTC/HERBAL SUPPLEMENTS EA 04/15/2016 04/15/2017 PO ASDIR *VENLAFAXINE XR 37.5MG CAPSULE CAP 04/22/2016 04/22/2017 PO QD& 0900 *ALLOPURINOL 100MG TABLET TAB 04/22/2016 04/22/2017 PO QD&0900 *SIMVASTATIN 20MG TABLET TAB 04/22/2016 04/22/2017 PO HS&2200 *ENALAPRIL 5MG TABLET TAB 04/22/2016 04/22/2017 PO HS&2200 * DONT RECONCILE--CHANGE PENDING EA 05/09/2016 05/12/2016 PO PRN LACTATED RINGERS 1000 ML IV SOLN BAG 05/12/2016 05/12/2016 IV PRE-OP VANCOMYCIN 1GM INJ VL 05/12/2016 05/12/2016 PB PRE-OP MIDAZOLAM 2MG/2ML INJ VL 05/12/2016 05/12/2016 IV PRE-OP fentaNYL 100 MCG/2ML INJ AMP 05/12/2016 05/12/2016 IV PRE-OP LACTATED RINGERS 1000 ML IV SOLN BAG 05/12/2016 05/12/2016 IV ONCE SODIUM CHLORIDE 0.9% 1000ML IRRIG SOLN EA 05/12/20162015 IRR ONCE BUPIVACAINE W/ EPI 0.25% INJ [10 ML] VL 05/12/2016 05/12/2016 ID ONCE ONDANSETRON 4MG/2ML INJ VL 05/12/2016 05/12/2016 IVP ONCE LIDOCAINE 2% SYRINGE [100MG/5ML] SYR 05/12/2016 05/12/2016 IVP ONCE ROCURONIUM 50MG/5ML INJ VL 05/12/2016 05/12/2016 IVP ONCE PROPOFOL 200MG/20ML INJ VL 05/12/2016 05/12/2016 IVP ONCE * Ready to Reconcile EA 05/12/2016 05/12/2016 PO ASDIR SODIUM CHLORIDE 0.9% 10ML FLUSH SYRINGE SYR 05/12/20162016 IVP BID&0900,2100 POLYETHYLENE GLYCOL 17GM PKT PKT 05/12/2016 05/12/2017 PO QD& 0900 DOCUSATE SODIUM 100MG CAPSULE CAP 05/12/2016 05/12/2017 PO BID& 0900,2100 fentaNYL 250 MCG/5ML INJ AMP 05/12/2016 05/12/2016 IV ONCE MORPHINE 2 MG/1ML SYRINGE ML 05/12/2016 05/12/2017 IVP [id number] SODIUM CHLORIDE 0.9% W/ KCL 20MEQ 1000ML IV SOLN BAG 05/12/2016 05/12/2016 IV 100ML/HR LORazepam 0.5MG TABLET TAB 05/12/2016 05/12/2017 PO Q4HPRN CYCLOBENZAPRINE 10 MG TABLET TAB 05/12/2016 05/12/2017 PO [id number] SODIUM CHLORIDE 0.9% 10ML FLUSH SYRINGE SYR 05/12/20162016 IVP PRN SODIUM CHLORIDE 0.9% 5ML FLUSH SYRINGE SYR 05/12/20162016 IVP PRN MAGNESIUM HYDROXIDE 2400MG/30ML SUSP EA 05/12/2016 05/12/2017 PO PRN CEPACOL (BENZOCAINE/MENTHOL) LOZENGE VALE 05/12/2016 05/12/2017 BC Q4HPRN MORPHINE 4MG/1ML SYRINGE ML 05/12/2016 05/12/2017 IVP S5LSUEZ oxyCODONE/ACETAMINOPHEN 7.5-325 MG TABLET TAB 05/12/20162016 PO W1AOVQH BISACODYL 10MG SUPPOS. SUP 05/12/2016 05/12/2017 OK* PRN ZOLPIDEM 5MG TABLET TAB 05/12/2016 05/12/2017 PO HSPRNI&2200 ONDANSETRON 4MG TABLET TAB 05/12/2016 05/12/2017 PO [id number] FAMOTIDINE 20 MG TABLET TAB 05/12/2016 05/12/2017 PO BIDPRNN BISACODYL 5MG TABLET TAB 05/12/2016 05/12/2017 PO PRN PHENOL 1.4% THROAT SPRAY [118ML] EA 05/12/2016 05/12/2017 PO PRN ONDANSETRON 4MG/2ML INJ VL 05/12/2016 05/12/2017 IVP [id number] METOCLOPRAMIDE 10MG/2ML INJ VL 05/12/2016 05/12/2017 IVP [id number] INFLUENZA VIRUS VACCINE SYRINGE SYR 05/12/2016 05/12/2016 IM ASDIR *LIRAGLUTIDE 18 MG/3ML PEN EA 05/12/2016 05/12/2017 SQ QD&0900 PNEUMOCOCCAL VACCINE 25 MCG/0.5ML VIAL VL 05/12/20162015 IM ASDIR *VENLAFAXINE ER 150MG CAPSULE CAP 05/12/2016 05/12/2017 PO QD& 0900 *SIMVASTATIN 40MG TABLET TAB 05/12/2016 05/12/2017 PO HS&2200 *ALLOPURINOL 100MG TABLET TAB 05/12/2016 05/12/2017 PO QD&0900 *MONTELUKAST 10MG TABLET TAB 05/12/2016 05/12/2017 PO QD&0900 *ENALAPRIL 10MG TABLET TAB 05/12/2016 05/12/2017 PO BID&0900, 2100 hydroMORPHONE 2MG/1ML INJ ML 05/12/2016 05/12/2016 IV ONCE INFLUENZA VIRUS VACCINE SYRINGE SYR 05/12/2016 05/12/2017 IM ASDIR PNEUMOCOCCAL VACCINE 25 MCG/0.5ML VIAL VL 05/12/20162016 IM ASDIR PHENYLEPHRINE 1MG/10ML SYRINGE [COMPOUND] DOS 05/12/201605/12 IVP ONCE ePHEDrine 20MG/2ML SYRINGE (COMPOUNDED) DOS 05/12/20162015 IVP ONCE PHENYLEPHRINE 1MG/10ML SYRINGE [COMPOUND] DOS 05/12/201605/12 IVP ONCE PHENYLEPHRINE 1MG/10ML SYRINGE [COMPOUND] DOS 05/12/201605/12 IVP ONCE GLYCOPYRROLATE 0.2 MG/1ML INJ VL 05/12/2016 05/12/2016 IVP ONCE NEOSTIGMINE 3MG/3ML SYRINGE [COMPOUND] DOS 05/12/20162015 IVP ONCE ONDANSETRON 4MG/2ML INJ VL 05/12/2016 05/12/2016 IV POST-OP hydroMORPHONE 2MG/1ML INJ ML 05/12/2016 05/12/2016 IV POST-OP LACTATED RINGERS 1000 ML IV SOLN BAG 05/12/2016 05/12/2016 IV ONCE LACTATED RINGERS 1000 ML IV SOLN BAG 05/12/2016 05/12/2016 IV POST-OP SODIUM CHLORIDE 0.9% 1000ML IV SOLN BAG 05/12/2016 05/13/2016 LVP PRN *MONTELUKAST 10MG TABLET TAB 05/12/2016 05/12/2016 PO QD&0900 *MONTELUKAST 10MG TABLET TAB 05/12/2016 05/12/2017 PO QD&2100 SODIUM CHLORIDE 0.9% 1000ML IV SOLN BAG 05/12/2016 05/12/2016 LVP ONCE SODIUM CHLORIDE 0.9% 1000ML IV SOLN BAG 05/13/2016 05/14/2016 LVP 150ML/HR SODIUM CHLORIDE 0.9% 1000ML IV SOLN BAG 05/13/2016 05/13/2016 LVP ONCE DEXAMETHASONE 10MG/1ML VIAL VL 05/13/2016 05/13/2016 IVP ONCE DEXAMETHASONE 10MG/1ML VIAL VL 05/13/2016 05/13/2016 IVP ONCE diphenhydrAMINE 25MG CAPSULE CAP 05/13/2016 05/13/2017 PO Q6HPRN diphenhydrAMINE 50MG/1ML INJ VL 05/13/2016 05/13/2017 IVP Q6HPRN diphenhydrAMINE 25MG CAPSULE CAP 05/13/2016 05/13/2016 PO ONCE SODIUM CHLORIDE 0.9% 1000ML IV SOLN BAG 05/13/2016 05/13/2016 LVP 100ML/HR *OTC/HERBAL SUPPLEMENTS EA 06/08/2016 06/08/2017 PO ASDIR *LIRAGLUTIDE 18 MG/3ML PEN EA 06/08/2016 05/12/2016 SQ QD&0900 *MELOXICAM 15MG TABLET TAB 06/08/2016 06/08/2017 PO QD&0900 *VENLAFAXINE XR 37.5MG CAPSULE CAP 06/08/2016 05/12/2016 PO QD& 0900 *ALLOPURINOL 100MG TABLET TAB 06/08/2016 05/12/2016 PO QD&0900 *SIMVASTATIN 20MG TABLET TAB 06/08/2016 05/12/2016 PO HS&2200 *MONTELUKAST 10MG TABLET TAB 06/08/2016 05/12/2016 PO QD&0900 *ESTRADIOL 1MG TABLET TAB 06/08/2016 06/08/2017 PO QD&0900 *ENALAPRIL 5MG TABLET TAB 06/08/2016 05/12/2016 PO HS&2200 *VENLAFAXINE ER 150MG CAPSULE CAP 06/11/2016 05/12/2016 PO QD& 0900 *ENALAPRIL 10MG TABLET TAB 06/11/2016 05/12/2016 PO BID&0900, 2100 *CYCLOBENZAPRINE 10 MG TABLET TAB 06/11/2016 06/11/2017 PO BID &0900,2100 *SIMVASTATIN 40MG TABLET TAB 06/11/2016 05/12/2016 PO HS&2200 *MAGNESIUM OXIDE 400MG TABLET TAB 06/11/2016 06/11/2017 PO BID& 0900,2100 *oxyCODONE/ACETAMINOPHEN 5-325 MG TABLET TAB 06/11/20162016 PO BID&0900,2100 Problems Date Dx Coded Attending Type Code Diagnosis Diagnosed By 07/26/2012 Ot 793.89 OTH (ABN) FINDINGS ON RADIOLOGICAL EXAMI 02/02/2016 Lavell De La Paz Ot M48.02 SPINAL STENOSIS, CERVICAL REGION 02/10/2016 Lavell De La Paz Ot M50.12 CERVICAL DISC DISORDER W RADICULOPATHY, 02/10/2016 Lavell De La Paz Ot M48.02 SPINAL STENOSIS, CERVICAL REGION 2016 [employer] DF D72.829 Elevated white blood cell count, unspeci 2016 [employer] DF E66.9 Obesity, unspecified 2016 [employer] DF E78.5 Hyperlipidemia, unspecified 2016 [employer] DF I10 Essential (primary) hypertension 2016 [employer] DF J45.909 Unspecified asthma, uncomplicated 2016 [employer] DF M50.32 Other cervical disc degeneration, mid-ce 2016 [employer] DF Z68.37 Body mass index (BMI) 37.0-37.9, adult 05/14/2016 [employer] DF D72.829 Elevated white blood cell count, unspeci 05/14/2016 [employer] DF E11.9 Type 2 diabetes mellitus without complic 05/14/2016 [employer] E66.9 Obesity, unspecified 05/14/2016 [employer] E78.5 Hyperlipidemia, unspecified 05/14/2016 [employer] DF F41.8 Other specified anxiety disorders 05/14/2016 [employer] DF I12.9 Hypertensive chronic kidney disease with 05/14/2016 [employer] J45.909 Unspecified asthma, uncomplicated 05/14/2016 [employer] M10.9 Gout, unspecified 05/14/2016 [employer] M19.90 Unspecified osteoarthritis, unspecified 05/14/2016 [employer] M25.78 Osteophyte, vertebrae 05/14/2016 [employer] DF M48.02 Spinal stenosis, cervical region 05/14/2016 [employer] DF M50.12 Cervical disc disorder with radiculopath 05/14/2016 [employer] DF M50.122 Cervical disc disorder at C5-C6 level wi 05/14/2016 [employer] DF N18.3 Chronic kidney disease, stage 3 (moderat 05/14/2016 [employer] DF Z68.37 Body mass index (BMI) 37.0-37.9, adult 07/11/2016 [employer] DF M25.78 Osteophyte, vertebrae 07/11/2016 [employer] DF M54.12 Radiculopathy, cervical region 07/11/2016 [employer] DF Z98.1 Arthrodesis status Procedures Code Description Performed By Performed On 85.11 07/26/2012 85.19 07/26/2012 [id number] 01/06/2016 [id number] Fusion of 2 or more Cervical Vertebral J [employer] 05/12/2016 Results Test Result Range 28168-5 - 03/22/16 09:30 Leukocytes [#/volume] in Blood 19.9 x10 4.6 - 10.2 Erythrocytes [#/volume] in Blood 4.15 x10 4.04 - 5.48 Hemoglobin [Mass/volume] in Blood 13.7 g/dl 11.4 - 15.2 Hematocrit [Volume Fraction] of Blood by Automated count 40.2 % 34.0 - 46.0 Erythrocyte mean corpuscular volume [Entitic volume] by Automated count 96.9 FL 80.0 - 97.0 Erythrocyte mean corpuscular hemoglobin [Entitic mass] by Automated count 33.0 pg 26.0-34.0 Erythrocyte mean corpuscular hemoglobin concentration [Mass/volume] by Automated count 34.1 g/dl 32.0 - 35.0 Erythrocyte distribution width [Ratio] by Automated count 15.3 % 11.0 - 15.0 Platelets [#/volume] in Blood 431 x10 142 - 424 Neutrophils.segmented/100 leukocytes in Blood 68 35 - 71 Neutrophils.band form/100 leukocytes in Blood 2 0-5 Lymphocytes/100 leukocytes in Blood 21 20-53 Monocytes/100 leukocytes in Blood 6 0- 10 Eosinophils/100 leukocytes in Blood 2 0- 3 Smear morphology panel - Blood Normal Basophils/100 leukocytes in Blood 1 0-1 5778-6 - 03/22/16 09:30 Color of Urine Straw Straw Clarity of Urine Sl. Hazy Clear Glucose [Presence] in Urine by Test strip Negative Neg Bilirubin.total [Presence] in Urine by Test strip Negative Neg Ketones [Presence] in Urine by Test strip Negative Neg Specific gravity of Urine by Test strip 1.030 1.010-1.030 Hemoglobin [Mass/volume] in Urine by Test strip Negative Neg pH of Urine 6.0 5 - 8 Protein [Presence] in Urine Trace Neg Urobilinogen [Presence] in Urine by Test strip 0.2 EU/dl 0.2-1.0 Nitrite [Presence] in Urine by Test strip Negative Neg Leukocyte esterase [Presence] in Urine by Test strip Negative Neg Erythrocyte sedimentation rate by [place] method - 03/22/16 12:25 Erythrocyte sedimentation rate by [place] method 22 mm/hr 0 - 20 C reactive protein [Mass/volume] in Serum or Plasma by High sensitivity method - 03/22/16 12:25 C reactive protein [Mass/volume] in Serum or Plasma by High sensitivity method 8.91 mg/L 0.00 - 0.90 Comprehensive metabolic 2000 panel - Serum or Plasma - 05/13/16 04:30 Glucose [Mass/volume] in Serum or Plasma 118 mg/dl 64 - 112 Urea nitrogen [Mass/volume] in Serum or Plasma 21.1 mg/dl 7.3 - 20.2 Creatinine [Mass/volume] in Serum or Plasma 2.1 mg/dl 0.5 - 0.9 Urea/Creatinine [Mass Ratio] in Serum or Plasma 10.0 6 - 26 Calcium [Mass/volume] in Serum or Plasma 7.74 mg/dl 8.30 - 10.60 Sodium [Moles/volume] in Serum or Plasma 134 mmol/L 135 - 151 Potassium [Moles/volume] in Serum or Plasma 5.3 mmol/L 3.5 - 5.0 Chloride [Moles/volume] in Serum or Plasma 101 mmol/L 98 - 113 Protein [Mass/volume] in Serum or Plasma 5.6 gm/dl 6.2 - 8.0 Albumin [Mass/volume] in Serum or Plasma 3.3 gm/dl 3.5 - 5.2 Globulin [Mass/volume] in Serum 2.3 gm/dl 2-4 Albumin/Globulin [Mass Ratio] in Serum or Plasma 1.4 1.1-2.4 Alanine aminotransferase [Enzymatic activity/volume] in Serum or Plasma 23 U/L 0 - 55 Alkaline phosphatase [Enzymatic activity/volume] in Serum or Plasma 94 U/L 42 - 98 Bilirubin.total [Mass/volume] in Serum or Plasma 0.25 mg/dl 0.10 - 1.20 Carbon dioxide, total [Moles/volume] in Venous blood 24 mmol /L 23 - 34 2345-7 - 05/14/16 04:36 Glucose [Mass/volume] in Serum or Plasma 201 mg/dl 64 - 112 Urea nitrogen [Mass/volume] in Serum or Plasma 23.7 mg/dl 7.3 - 20.2 Creatinine [Mass/volume] in Serum or Plasma 1.5 mg/dl 0.5 - 0.9 Calcium [Mass/volume] in Serum or Plasma 8.25 mg/dl 8.30 - 10.60 Sodium [Moles/volume] in Serum or Plasma 136 mmol/L 135 - 151 Potassium [Moles/volume] in Serum or Plasma 4.9 mmol/L 3.5 - 5.0 Chloride [Moles/volume] in Serum or Plasma 104 mmol/L 98 - 113 Carbon dioxide, total [Moles/volume] in Venous blood 22 mmol /L 23 - 34 Encounters ACCT No. Visit Date/Time Discharge Status Pt. Type Provider Facility Loc./Unit Complaint [id number] 08/26/2016 09:38:00 ACT Unknown [id number] 06/20/2016 14:04:00 ACT Unknown [id number] 06/20/2016 13:54:00 ACT Unknown [id number] 01/07/2016 07:36:00 ACT Unknown [id number] 12/31/2015 10:27:00 ACT Unknown [id number] 12/31/2015 09:46:00 ACT Unknown [id number] 09/15/2015 08:06:00 ACT Unknown [id number] 09/04/2015 12:49:00 ACT Unknown [id number] 11/12/2014 10:32:00 ACT Unknown [id number] 09/26/2014 08:58:00 ACT Unknown [id number] 09/11/2014 12:48:00 ACT Unknown [id number] 09/09/2014 07:56:00 ACT Unknown [id number] 06/27/2014 10:00:00 ACT Unknown [id number] 05/23/2014 13:06:00 ACT Unknown [id number] 11/06/2013 11:14:00 ACT Unknown [id number] 10/30/2013 08:23:00 ACT Unknown [id number] 10/30/2013 08:23:00 ACT Unknown [id number] 05/29/2013 09:02:00 ACT Unknown
--- OUTSIDE RECORDS SUMMARY | 2016-12-23 20:38 | XMS REPORT | Continuity of Care Document ---
Author Author [facility] Organization [facility] Address Unknown Phone Unavailable Support Name Relationship Address Phone EUSEBIO PAYNE MD Caregiver [address] [place] [address] [place] [address] Unavailable EUSEBIO PAYNE MD Caregiver [address] [place] [address] [place] [address] Unavailable DOLLY PINTO ENROLLED AGENT Caregiver [address] [place] [address] Unavailable DAVIDSON PAIGE Next Of Kin [address] [place] [address] Insurance Providers Guarantor Deisy Paige Address [address] [place] [address] Email [email or web address] [facility] [[email or web address] Policy Number [id number] Subscriber's Name Davidson Paige Mariya Relationship 01 Spouse Group Number [id number] Advance Directives Directive Response Recorded Date/Time Ordered Resuscitation Status Full Code 04/12/16 7:45pm Resuscitation Documents on File No 04/12/16 5:38pm DPOA for Healthcare Only No 04/13/16 7:49am Living Will No 04/12/16 5:38pm Problems Active Problems Medical Problem Onset Date Status Abnormal findings on imaging test Unknown Acute Asthma Unknown DMII (diabetes mellitus, type 2) Unknown Chronic Degenerative arthritis of left knee Unknown Degenerative arthritis of right knee Unknown Hx MRSA infection Unknown Resolved Hypertension Unknown Chronic Leukocytosis Unknown Chronic Mixed hyperlipidemia Unknown Chronic Obesity (BMI 30-39.9) Unknown Medications Current Home Medications Medication Dose Units Route Directions Days Qty Instructions Start Date Acetaminophen (Tylenol) 325 Mg Tablet 650 Mg Oral Four Times Daily 100 Tablet 09/24/14 Albuterol Sulfate (Albuterol Sulfate Hfa) 8.5 Gm Hfa.aer.ad 1 Puff Inhalation As Needed 09/22/14 Allopurinol 300 Mg Tablet 300 Mg Oral Bedtime 10/14/08 Enalapril Maleate 5 Mg Tablet 5 Mg Oral Bedtime 10/14/08 Estrogens,Conjugated (Premarin) 0.9 Mg Tablet 0.9 Mg Oral Bedtime 10/14/08 Fluticasone Propionate (Flonase 50 Mcg/Actuation Nasal Corning) 16 Gm Corning.susp 2 Corning Each Nostril Daily 09/23/14 Meloxicam 15 Mg Tablet 15 Mg Oral Daily 09/23/14 Oxycodone Hcl (Roxicodone) 5 Mg Tablet 5-15 Mg Oral Every 3 Hours as needed for Breakthrough Pain 60 Tablet 09/24/14 Potassium Chloride 10 Meq Capsule.er 10 Meq Oral Daily Take 1 capsule, by mouth, two times a day with meals 09/23/14 Venlafaxine Hcl 100 Mg Tablet 150 Oral Bedtime 04/12/16 Past Home Medications Medication Directions Ordered Status Acetaminophen (Tylenol) 325 Mg Tablet, 325 Mg Oral Prn 2 Tabs 10/14/08 Discontinued Albuterol , 01/19/11 Discontinued Etodolac 400 Mg Tablet, 400 Mg Oral Bedtime 10/14/08 Discontinued Oxycodone/Acetaminophen (Percocet 7.5-325 Mg Tablet) 1 Each Tablet, 7.5 Mg Oral Bedtime 09/23/14 Discontinued Social History Social History Problem Response Recorded Date/Time Onset Date Status Reason for Hospitalization R/O Left ventricular thrombus 04/13/2016 11:07am Not Applicable Not Applicable Hx Substance Use No 01/19/2011 11:20am Not Applicable Not Applicable Hx Alcohol Use Y 2 X MONTH, SOCIALLY 01/19/2011 11:20am Not Applicable Not Applicable Has the pt used tobacco in the last 12 months No 04/12/2016 5:41pm Not Applicable Not Applicable Query Response Start Date Stop Date Smoking Status Never smoker Hospital Discharge Instructions Instructions: Care Instructions: Reason for Hospitalization: R/O Left ventricular thrombus I was in the hospital because (patient own words): I have a blood clot in my heart Discharge Diet: 2000 KCAL ADA low sodium Discharge Activity: As tolerated Follow Up Appointments: Dr Armijo on 04/14/16 at 2:00PM as schedulaed Pending Lab / Results: No Pending Lab Condition at time of discharge: Good Plan of Care Discharge Date 04/13/16 12:32pm Disposition 01 DISCHARGED HOME, SELF-CARE Instructions/Education Provided [facility] Discharge Information Prescriptions See Medication Section Care Plan and Goals See Discharge Instructions Section Functional Status Query Response Date Recorded Mobility Status Ambulatory April 12, 2016 5:55pm Assistive Devices None April 12, 2016 5:55pm Activity Limitations Weakness Fatigue Shortness of breath Dizziness Syncope/fainting Pain April 12, 2016 5:55pm Feeding Ability Independent April 12, 2016 5:55pm Toileting Ability Independent April 12, 2016 5:55pm Grooming Ability Independent April 12, 2016 5:55pm Dressing Ability Independent April 12, 2016 5:55pm Driving Ability Independent April 12, 2016 5:55pm Housework Ability Independent April 12, 2016 5:55pm Meal Preparation Ability Independent April 12, 2016 5:55pm Stair Climbing Ability Independent April 12, 2016 5:55pm Ability to complete ADL's impeded by No change April 12, 2016 5:55pm Cognitive/Perceptual Impairments None April 12, 2016 5:55pm Preferred Method of Learning Reading April 12, 2016 5:55pm Allergies, Adverse Reactions, Alerts Allergen Type Severity Reaction Status Last Updated Penicillin Allergy Intermediate HIVES Active 09/25/08 Hydrocodone Allergy Unknown ITCHING Active 09/18/14 Immunizations Query Response on File Recorded Date/Time Hx Influenza Vaccination Y 04/12/16 5:41pm Hx Pneumococcal Vaccination No 04/12/16 5:41pm Hx Influenza Vaccination Y 04/12/16 5:41pm Vital Signs Acute Vital Signs Vital Response Date/Time Temperature (Fahrenheit) 97.6 deg F (96.8 - 99.1) 04/13/2016 11:33am Temperature (Calculated Celsius) 36.38299 degrees C (36.0 - 37.3) 04/13/2016 11:33am Temperature Source Oral 04/13/2016 11:33am Pulse Rate (adult) 99 bpm (60 - 100) 04/13/2016 12:26pm Respiratory Rate 16 breaths/min (10 - 20) 04/13/2016 12:26pm O2 Sat by Pulse Oximetry 96 % (90 - 100) 04/13/2016 12:26pm Oxygen Delivery Method Room Air 04/13/2016 12:26pm Oxygen Delivery Method Room Air 04/13/2016 8:51am Oxygen Flow Rate 1.00 L/min 04/13/2016 8:32am Blood Pressure 109/73 mm Hg 04/13/2016 12:26pm Blood Pressure Source Automatic Cuff 04/13/2016 12:26pm Height (Feet) 5 feet 04/13/2016 7:49am Height (Inches) 3.00 inches 04/13/2016 7:49am Weight (Kilograms) 97.500 kg 04/13/2016 9:46am Body Mass Index (BMI) 37.8 04/12/2016 5:37pm Results Laboratory Results Test Name Result Units Flags Reference Collection Date/Time Result Date/ Time Comments Lactate Dehydrogenase 437 U/L 313-618 04/01/2016 [facility] 04/01/2016 2:52pm Immunoglobulin G 623.25 MG/DL L 700-1600 04/01/2016 [facility] 04/01/2016 3: 00pm Immunoglobulin A 248.88 MG/DL 70-400 04/01/2016 [facility] 04/01/2016 3:00pm Immunoglobulin M 99.09 MG/DL 40-230 04/01/2016 [facility] 04/01/2016 3:00pm Serum Total Protein 5.7 g/dL L 6.0-7.6 04/01/2016 [facility] 04/04/2016 12: 17pm Please note new reference range for adult Protein. Immunoelectrophoresis, no IMQ performed at [facility], [address] [place] [address] Rooming House Inspector Delaney Mack DO Please note new reference range for adult Protein. --- 04/04/16 1217 --- PEPR previously reported as: 5.7 L g/dL Please note new reference range for adult Protein. Immunoelectrophoresis, no IMQ performed at [facility], [address] [place] [address] Rooming House Inspector Delaney Mack DO Albumin (PEP) 2.9 g/dL 2.6-4.5 04/01/2016 [facility] 04/04/2016 12:17pm Zvzow-9-Eejnozysi 0.4 g/dL 0.3-0.5 04/01/2016 [facility] 04/04/2016 12:17pm Lkpmw-4-Nvkcubyjx 0.9 g/dL 0.6-1.2 04/01/2016 [facility] 04/04/2016 12:17pm Zqyt-6-Lfzqpwtn 0.5 g/dL 0.4-0.6 04/01/2016 [facility] 04/04/2016 12:17pm Rfif-1-Xucjphtx 0.4 g/dL 0.2-0.5 04/01/2016 [facility] 04/04/2016 12:17pm Gamma Globulins 0.6 g/dL 0.4-1.7 04/01/2016 K 04/04/2016 12:17pm Albumin % (PEP) 51.0 % 48.7-61.8 04/01/2016 K 04/04/2016 12:17pm Hlgov-6-Bnrjzihyk (%) 7.5 % 3.4-8.3 04/01/2016 K 04/04/2016 12:17pm Syxdl-7-Ehrkocbls (%) 15.1 % 8.4-17.5 04/01/2016 K 04/04/2016 12: 17pm Tfih-1-Tbrqctxq (%) 8.8 % 5.4-8.9 04/01/2016 [facility] 04/04/2016 12:17pm Qzfg-9-Numhwspx (%) 6.4 % 3.8-7.7 04/01/2016 K 04/04/2016 12:17pm Gamma Globulins (%) 11.2 % 8.1-23.0 04/01/2016 [facility] 04/04/2016 12:17pm Immunoelectrophoresis, no IMQ performed at [facility], [address] [place] [address] Rooming House Inspector Delaney Mack DO Protein Electrophoresis Comment see below 04/01/2016 K 2015 12:17pm Normal electrophoretic pattern. No monoclonal peaks or restricted areas observed by immunofixation. Free [place]/Lambda Light Chain Ratio 1.25 04/01/2016 K 04/04/2016 12:26pm Reference Range: 0.2600-1.65 Test Performed by: [place] [address] Associate Biological Sales: Carlos A Ferrell II, M.D., Ph.D. Immunoglobulin Free Light Chains, Serum performed at [facility], [address] [place] [address] Rooming House Inspector Ghassan Machado MD Free [place] Light Chains 3.00 mg/dL H 04/01/2016 K 04/04/2016 12: 26pm Reference Range: 0.3300-1.94 Free Lambda Light Chains 2.40 mg/dL () 04/01/2016 K 04/04/2016 12: 26pm Reference Range: 0.5700-2.63 Test Performed by: [facility] [address] [place] [address] Associate Biological Sales: Carlos A Ferrell II, M.D., Ph.D. Immunoglobulin Free Light Chains, Serum performed at [facility], [address] [place] [address] Rooming House Inspector Ghassan Machado MD Reference Range: 0.5700-2.63 --- 04/04/16 1226 --- IFLCLA previously reported as: 2.40 mg/dL Reference Range: 0.5700-2.63 Test Performed by: [place] [address] Associate Biological Sales: Carlos A Ferrell II, M.D., Ph.D. Immunoglobulin Free Light Chains, Serum performed at [facility], [address] [place] [address] Rooming House Inspector Ghassan Machado MD Erythrocyte Sedimentation Rate 18 mm/h 0-23 04/01/2016 UNK 04/02/2016 12:51am Sedimentation Rate performed at [facility], [address] [place] [address] Rooming House Inspector Delaney Mack DO White Blood Count 15.1 T/MM3 H 4.5-11.0 04/13/2016 2:1504/13/2016 2: 51am Red Blood Count 3.68 M/MM3 L 4.00-5.20 04/13/2016 2:1504/13/2016 2: 51am Hemoglobin 11.9 GM/DL L 12-16 04/13/2016 2:1504/13/2016 2:51am Hematocrit 37.0 % 36-46 04/13/2016 2:1504/13/2016 2:51am Mean Corpuscular Volume 100.5 UM3 H 80-100 04/13/2016 2:1504/13/2016 2:51am Mean Corpuscular Hemoglobin 32.3 UUG 26-34 04/13/2016 2:152015 2:51am Mean Corpuscular Hemoglobin Concent 32.2 GM/DL 31-37 04/13/2016 2:1504/13/2016 2:51am RDW Standard Deviation 51.7 FL H 36.9-50.2 04/13/2016 2:04/13/2016 2:51am Platelet Count 319 T/MM3 130-400 04/13/2016 2:04/13/2016 2:51am Mean Platelet Volume 8.8 UM3 L 9.4-12.4 04/13/2016 2:04/13/2016 2: 51am Neutrophils % (Manual) 66.0 % 33-66 04/13/2016 2:04/13/2016 3: 54am Band Neutrophils % 2.0 % 0-6 04/13/2016 2:04/13/2016 3:54am Lymphocytes % (Manual) 20.0 % L 23-45 04/13/2016 2:04/13/2016 3: 54am Monocytes % (Manual) 9.0 % 0-9.0 04/13/2016 2:04/13/2016 3:54am Eosinophils % (Manual) 3.0 % 0-4 04/13/2016 2:04/13/2016 3:54am Basophils % (Manual) 2.0 % 0-2 04/12/2016 5:36pm 04/12/2016 6:33pm Metamyelocytes % 2.0 % H 0-0 04/12/2016 5:36pm 04/12/2016 6:33pm Band Neutrophils # 0.3 T/MM3 04/13/2016 2:04/13/2016 3:54am Absolute Neutrophils (Manual) 10.0 T/MM3 H 1.8-7.7 04/13/2016 2: 3:54am Lymphocytes # (Manual) 3.0 T/MM3 1-4.8 04/13/2016 2:04/13/2016 3: 54am Monocytes # (Manual) 1.4 T/MM3 H 0-0.8 04/13/2016 2:04/13/2016 3: 54am Eosinophils # (Manual) 0.5 T/MM3 0-0.5 04/13/2016 2:04/13/2016 3: 54am Basophils # (Manual) 0.3 T/MM3 H 0-0.2 04/12/2016 5:36pm 04/12/2016 6: 33pm Metamyelocytes # 0.3 T/MM3 04/12/2016 5:36pm 04/12/2016 6:33pm Red Cell Morphology Comment ABNORMAL 04/13/2016 2:1504/13/2016 3 :54am Anisocytosis 1+ 04/13/2016 2:1504/13/2016 3:54am Macrocytosis 1+ 04/12/2016 5:36pm 04/12/2016 6:33pm Prothromb Time International Ratio 0.97 L 0.99-1.21 04/12/2016 5:36pm 04/12/2016 6:10pm THERAPUTIC RANGE=2.00-3.00 FOR ANTI-THROMBOSIS THERAPUTIC RANGE=2.50-3.50 FOR IMPLANTED VALVE Activated Partial Thromboplast Time 176.9 SEC *H 24-36 04/13/2016 2:1504/13/2016 2:58am Icterus Index < 2 0-7 04/13/2016 2:04/13/2016 2:35am Chemistry Specimen Hemolysis < 15 0-25 04/13/2016 2:04/13/2016 2 :35am 0-25: Specimen Exhibited No Hemolysis. Turbidity < 20 0-20 04/13/2016 2:04/13/2016 2:35am Sodium Level 137 MEQ/L 134-144 04/13/2016 2:04/13/2016 2:35am Potassium Level 3.9 MEQ/L 3.6-5 04/13/2016 2:04/13/2016 2:35am Chloride Level 101 MEQ/L 98-107 04/13/2016 2:04/13/2016 2:35am Carbon Dioxide Level 25 MEQ/L 22-30 04/13/2016 2:1504/13/2016 2: 35am Anion Gap 11 MEQ/L 5-15 04/13/2016 2:1504/13/2016 2:35am Blood Urea Nitrogen 14.0 MG/DL 7-17 04/13/2016 2:04/13/2016 2: 35am Creatinine 1.0 MG/DL 0.7-1.2 04/13/2016 2:1504/13/2016 2:35am BUN/Creatinine Ratio 14 RATIO 6-26 04/13/2016 2:1504/13/2016 2:35am Glomerular Filtration Rate Calc 56 04/13/2016 2:15am 04/13/2016 2: 35am Glucose Level 110 MG/DL 65-110 04/13/2016 2:15am 04/13/2016 2:35am Calculated Osmolality 266 MOSM/KG 261-280 04/13/2016 2:15am 04/13/2016 2:35am Calcium Level 8.6 MG/DL 8.4-10.2 04/13/2016 2:15am 04/13/2016 2:35am Total Bilirubin 0.30 MG/DL 0.20-1.30 04/12/2016 5:36pm 04/12/2016 6: 18pm Alkaline Phosphatase 98 U/L 38-126 04/12/2016 5:36pm 04/12/2016 6:18pm Total Protein 6.6 G/DL 6.3-8.2 04/12/2016 5:36pm 04/12/2016 6:18pm Albumin 3.8 G/DL 3.5-5.0 04/12/2016 5:36pm 04/12/2016 6:18pm Globulin 2.8 G/DL 2.4-3.6 04/12/2016 5:36pm 04/12/2016 6:18pm Albumin/Globulin Ratio 1.4 RATIO 1.1-2.2 04/12/2016 5:36pm 04/12/2016 6 :18pm Aspartate Amino Transf (AST/SGOT) 26 U/L 14-36 04/12/2016 5:36pm 2015 6:18pm Alanine Aminotransferase (ALT/SGPT) 12 U/L 9-52 04/12/2016 5:36pm 04/12 6:18pm Magnesium Level 1.6 MG/DL 1.6-2.3 04/12/2016 5:36pm 04/12/2016 6:18pm Glucometer 127 mg/dL H 65-110 04/13/2016 5:49am 04/13/2016 5:52am Procedures Procedure Status Date Provider(s) COMPREHEN METABOLIC PANEL Completed 04/01/16 ASSAY IGA/IGD/IGG/IGM EACH Completed 04/01/16 ASSAY IGA/IGD/IGG/IGM EACH Completed 04/01/16 ASSAY IGA/IGD/IGG/IGM EACH Completed 04/01/16 LACTATE (LD) (LDH) ENZYME Completed 04/01/16 ASSAY OF MAGNESIUM Completed 04/01/16 ASSAY NEPHELOMETRY NOT SPEC Completed 04/01/16 ASSAY NEPHELOMETRY NOT SPEC Completed 04/01/16 ASSAY OF PROTEIN SERUM Completed 04/01/16 PROTEIN E-PHORESIS SERUM Completed 04/01/16 BL SMEAR W/DIFF WBC COUNT Completed 04/01/16 COMPLETE CBC AUTOMATED Completed 04/01/16 RBC SED RATE AUTOMATED Completed 04/01/16 IMMUNOFIX E-PHORESIS SERUM Completed 04/01/16 Encounters Encounter Location Arrival/Admit Date Discharge/Depart Date Attending Provider Discharged Inpatient (obs) [facility] 04/12/16 5:23pm 04/13/16 12 :32pm EUSEBIO PAYNE MD Registered Clinic [facility] 04/12/16 1:08pm ARMAND ARMIJO Registered [facility] 04/01/16 2:30pm ARMAND ARMIJO
--- OUTSIDE RECORDS SUMMARY | 2016-12-23 20:38 | XMS REPORT | Summary of Care ---
Author Author Esther Guevara M.D. Organization Unknown Address [address] [place], [place] [id number] Phone Unavailable Care Team Providers Care Intellectual Property Legal Assistant Name Role Phone Esther Guevara M.D. Unavailable Unavailable Jennifer Landrum PP Unavailable Unavailable Unavailable Functional Status Functional Status Health Issues* Name Dates Details Functional status health issues are not documented Status: Cognitive Status Health Issues* Name Dates Details Cognitive status health issues are not documented Status: Problems Name Dates Details Hypertension (401.9, I10) Status: Active Dyslipidemia (272.4, E78.5) Status: Active Depression (311, F32.9) Status: Active Gout (274.9, M10.9) Status: Active Chronic maxillary sinusitis (473.0, J32.0) Status: Active Allergic rhinitis due to other allergen (477.8, J30.89) Status: Active Not well controlled moderate persistent asthma (493.90, J45.40) Status: Active Acute recurrent sinusitis, unspecified location (461.9, J01.91) Status: Active 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 * Refills: 0 Esther Guevara M.D.* Started 19-Aug-2015 ActiveEnalapril Maleate 10 MG Oral Tablet TAKE 1 TABLET DAILY. * Refills: 0 Esther Guevara M.D.* Started 19-Aug-2015 ActiveMeloxicam 15 MG Oral Tablet TAKE 1 TABLET DAILY. * Refills: 0 Esther Guevara M.D.* Started 19-Aug-2015 ActiveSimvastatin 40 MG Oral Tablet Take 1 tablet daily * Refills: 0 Esther Guevara M.D.* Started 19-Aug-2015 ActiveFluticasone Propionate 50 MCG/ACT Nasal Suspension INSTILL SQUIRT PRN * Refills: 0 Esther Guevara M.D.* Started 19-Aug-2015 ActiveProAir HFA 108 (90 Base) MCG/ACT Inhalation Aerosol Solution INHALE PUFFS PRN * Refills: 0 Esther Guevara M.D.* Started 19-Aug-2015 ActiveClaritin 10 MG Oral Tablet TAKE 2 TABLET Daily * Refills: 0 Esther Guevara M.D.* Started 19-Aug-2015 ActiveZyrTEC Allergy 10 MG Oral Tablet TAKE 2 TABLET Daily * Refills: 0 Esther Guevara M.D.* Started 19-Aug-2015 ActiveAllopurinol 300 MG Oral Tablet TAKE 1 TABLET DAILY. * Refills: 0 Esther Guevara M.D.* Started 19-Aug-2015 ActiveVenlafaxine HCl ER 150 MG Oral Tablet Extended Release 24 Hour Take 1 tablet daily * Refills: 0 Esther Guevara M.D.* Started 19-Aug-2015 ActiveMontelukast Sodium 10 MG Oral Tablet TAKE ONE TABLET BY MOUTH EVERY EVENING * Quantity: 1 Refills: 6 Esther Guevara M.D.* Started 19-Aug-2015 [id number] Tablet Bottle Xopenex HFA 45 MCG/ACT Inhalation Aerosol 2 puffs every 4-6 hours as needed for cough, wheeze, shortness of breath. Rinse and Spit after use. * Quantity: 1 Refills: 1 Esther Guevara M.D.* Started 19-Aug-2015 [id number] GM Inhaler Allergies and Adverse Reactions Name Dates Details Penicillins Status: Active Procedures Procedure Dates Details History of Nasal Endoscopy With Total Ethmoidectomy Completed: History of Knee Replacement History of Lithotomy History of Sinus Surgery History of Tonsillectomy With Adenoidectomy Procedures not documented Immunization Name Dates Details Immunizations not documented Family History Child* Name Dates Details Family history of allergic rhinitis (V19.6, Z84.89) Status: Active Social History Name Dates Details Smoking Status* Never smoker Vital Signs Date Test Result Details 19-Aug-2015 09:18 BP Systolic 130 mm[Hg] Status: BP Diastolic 74 mm[Hg] Status: Temperature 98.2 f Status: Heart Rate 81 /min Status: Height 63 in Status: Weight 203 lb Status: Body Mass Index Calculated 35.96 kg/m2 Status: Body Surface Area Calculated 1.95 m2 Status: Results Date Description Value Details 19-Aug-2015 11:36 XRay SINUS Comments: Exam Date: 08/19/2015 10: 39Dictation Date: 08/19/2015 11:36 X SINUS COMP (MIN 3V) (Better) Plan of Care Planned Observations* Name Dates Details Planned Goals not documented Goal Planned Encounters* Appointment; Provider: Esther Guevara On 13-Oct-2015 11:15 * Appointment; Provider: Binu Umanzor On 12:00 Instructions * Instructions not documented Encounters Appointment; Esther Guevara Encounter Diagnosis: Problem not documented On 19-Aug-2015 09:00
--- OUTSIDE RECORDS SUMMARY | 2016-12-23 20:38 | XMS REPORT ---
Author Author LEONIE DIEZ [facility] Address Unknown Phone Unavailable Care Team Providers Care Slubber Tender Name Role Phone Dr. KWESI JAVED Primary Care Physician Unavailable Allergies Allergy Description Allergy Type PENICILLIN Drug allergy (disorder) Procedures Procedure Type Procedure Description Date Physicians No codified procedures found for this patient. Results No Procedures Performed Observation Test Name Observation Test Result Observation Test Units Observation Test Date Observation Test Time No result observations. Results Transcriptions Result Description Result Date Result Time CT ABDOMEN W/O CONT 05/06/13 12:41 History of Immunizations Immunization Date influenza, unspecified formulation 05/13/2012 Plan of Care Item Text No plan of care items. Procedure Date/Time/Initials Critical? Status No plan of care procedures. Medication List Medication Dose Units Frequency Start Date/Time Status none Problem List Problem Entered Date Resolved Date No known problems
--- OUTSIDE RECORDS SUMMARY | 2016-12-23 20:38 | XMS REPORT | Summary of Care ---
Author Author Esther Guevara M.D. Organization Unknown Address [address] [place], [place] [id number] Phone Unavailable Care Team Providers Care Truck Safety Inspector Name Role Phone Esther Guevara M.D. Unavailable [...] Refills: 6 Esther Guevara M.D.* Started 19-Aug-2015 [id number] Tablet Bottle Xopenex HFA 45 MCG/ACT Inhalation Aerosol 2 puffs every 4-6 hours as needed for cough, wheeze, shortness of breath. Rinse and Spit after use. * Quantity: 1 Refills: 1 Esther Guevara M.D.* Started 19-Aug-2015 [id number] GM Inhaler Sulfamethoxazole-Trimethoprim 800-160 MG Oral Tablet TAKE 1 TABLET BY MOUTH TWICE DAILY * Quantity: 20 Refills: 0 Esther Guevara M.D.* Started 19-Aug-2015 Ended 29-Aug-2015 ActivePredniSONE 20 MG Oral Tablet take one tablet by mouth every day * Quantity: 5 Refills: 0 Esther Guevara M.D.* Started 19-Aug-2015 Ended 24-Aug-2015 Active Allergies and Adverse Reactions Name Dates Details Penicillins Status: Active Procedures Procedure Dates Details History of Nasal Endoscopy With Total Ethmoidectomy Completed: History of Knee Replacement History of Lithotomy History of Sinus Surgery History of Tonsillectomy With Adenoidectomy MOLD PANEL [id number] Ordered:19-Aug-2015 REGION 9 EXTENDED [id number] Ordered:19-Aug-2015 Immunization Name Dates Details Immunizations not documented [...]
--- OUTSIDE RECORDS SUMMARY | 2016-12-23 20:38 | XMS REPORT | Summary of Care ---
Author Author Esther Guevara M.D. Organization Unknown Address [address] [place], [place] [phone] Phone Unavailable Care Team Providers Care Ground Instructor Basic Name Role Phone Esther Guevara M.D. Unavailable [...] Refills: 6 Esther Guevara M.D.* Started 19-Aug-2015 [id number] Tablet Bottle Xopenex HFA 45 MCG/ACT Inhalation Aerosol 2 puffs every 4-6 hours as needed for cough, wheeze, shortness of breath. Rinse and Spit after use. * Quantity: 1 Refills: 1 Esther Guevara M.D.* Started 19-Aug-2015 [id number] GM Inhaler Sulfamethoxazole-Trimethoprim 800-160 MG Oral Tablet TAKE 1 TABLET BY MOUTH TWICE DAILY * Quantity: 40 Refills: 0 Esther Guevara M.D.* Started 19-Aug-2015 Ended 08-Sep-2015 ActivePredniSONE 20 MG Oral Tablet take one [...] History of Tonsillectomy With Adenoidectomy MOLD PANEL [id number] Ordered:19-Aug-2015 REGION 9 EXTENDED [id number] Ordered:19-Aug-2015 Immunization Name Dates Details Immunizations not [...] m2 Status: Results Date Description Value Details Results not documented Plan of Care Planned Observations* Name Dates Details Planned Goals not documented Goal Planned Encounters* Appointment; Provider: Esther Guevara On 13-Oct-2015 11:15 * Appointment; Provider: Binu Umanzor On 12:00 Instructions * Instructions not documented Encounters Appointment; Esther Guevara Encounter Diagnosis: Problem not documented On 19-Aug-2015 09:00
--- OUTSIDE RECORDS SUMMARY | 2016-12-23 20:38 | XMS REPORT | CCD ---
Author Author IGLESIA ROCHA Organization Unknown Address [address] [place], [place] [id number] Phone 0 Care Team Providers Care Arts Administrator Or Manager Name Role Phone Perry MARTE Attending Physician 0 Vital Signs Unknown or Not Available. Allergies Allergy Code Allergy Type Reaction Status PENICILLIN 12287 Drug allergy Active Procedures Unknown or Not Available. History of Immunizations Immunization Code Date influenza, unspecified formulation 88 Problems Unknown or Not Available. Results Unknown or Not Available. Active Medications Unknown or Not Available. Medications Administered During Visit Unknown or Not Available. Encounters Encounter Diagnosis Diagnosis Code Start Date Other spondylosis with radiculopathy, cervical region M4722 12/30/2015 Social History Smoking Status Code Start Date End Date Never smoker [id number] Patient Decision Aids Unknown or Not Available. Discharge Instructions You were admitted to [facility] on 12/30/2015 13:12 with a principal diagnosis of Other spondylosis with radiculopathy, cervical region You were discharged from [facility] Should you have any questions prior to discharge, please contact a member of your healthcare team. If you have left the hospital and have any questions, please contact your primary care physician. Chief Complaint and Reason For Visit Chief Complaint Date of Onset PT Function Status Unknown or Not Available. Plan of Care Unknown or Not Available. Referral/Transition of Care Unknown or Not Available.
--- OUTSIDE RECORDS SUMMARY | 2016-12-23 20:38 | XMS REPORT | CCD ---
Author Author IGLESIA ROCHA Organization Unknown Address [address] [place], [place] [id number] Phone 0 Care Team Providers Care Coating Operator Name Role Phone DOLLY PINTO Attending Physician 0 Vital Signs Unknown or Not Available. Allergies Allergy Code Allergy Type Reaction Status PENICILLIN 41191 Drug allergy Active Procedures Unknown or Not Available. History of Immunizations Immunization Code Date influenza, unspecified formulation 88 Problems Unknown or Not Available. Results Unknown or Not Available. Active Medications Unknown or Not Available. Medications Administered During Visit Unknown or Not Available. Encounters Unknown or Not Available. Social History Smoking Status Code Start Date End Date Never smoker [id number] Patient Decision Aids Unknown or Not Available. Discharge Instructions You were admitted to [facility] on 12/22/2015 09:10 You were discharged from [facility] on 12/22/2015 09:10 Should you have any questions prior to discharge, please contact a member of your healthcare team. If you have left the hospital and have any questions, please contact your primary care physician. Chief Complaint and Reason For Visit Chief Complaint Date of Onset MRI CERV SPINE WO CONTR Function Status Unknown or Not Available. Plan of Care Unknown or Not Available. Referral/Transition of Care Unknown or Not Available.
--- OUTSIDE RECORDS SUMMARY | 2016-12-23 20:38 | XMS REPORT | CCD ---
Author Author ANEUDY AYALA Organization Unknown Address [address] [place], [place] [id number] Phone 0 Care Team Providers Care Building Serviceman Name Role Phone DOLLY PINTO Attending Physician 0 Vital Signs Unknown or Not Available. Allergies Allergy Code Allergy Type Reaction Status PENICILLIN 73965 Drug allergy Active Procedures Unknown or Not Available. History of Immunizations Immunization Code Date influenza, unspecified formulation 88 Problems Unknown or Not Available. Results Unknown or Not Available. Active Medications Unknown or Not Available. Medications Administered During Visit Unknown or Not Available. Encounters Unknown or Not Available. Social History Smoking Status Code Start Date End Date Never smoker [id number] Patient Decision Aids Unknown or Not Available. Discharge Instructions You were admitted to [facility] on 12/02/2014. You were discharged from [facility] on 12/02/2014. Should you have any questions prior to discharge, please contact a member of your healthcare team. If you have left the hospital and have any questions, please contact your primary care physician. Chief Complaint and Reason For Visit Chief Complaint Date of Onset LEFT KNEE XRAY Function Status Unknown or Not Available. Plan of Care Unknown or Not Available. Referral/Transition of Care Unknown or Not Available.
--- OUTSIDE RECORDS SUMMARY | 2016-12-23 20:39 | XMS REPORT | CCD ---
Author Author IGLESIA ROCHA Organization Unknown Address [address] [place], [place] [phone] Phone 0 Care Team Providers Care Gold Letterer Name Role Phone DOLLY PINTO Attending Physician 0 Vital Signs Unknown or Not Available. Allergies Allergy Code Allergy Type Reaction Status PENICILLIN 04596 Drug allergy Active Procedures Unknown or Not Available. History of Immunizations Immunization Code Date influenza, unspecified formulation 88 Problems Unknown or Not Available. Results COMP METABOLIC - Collect Date/Time: 12/16/2015 16:35 Test Name Code Test Result Test Units Test Ref Range GLUCOSE 117 mg/dL L=70 H=110 BUN 21 mg/dL L=7 H=18 CREATININE 1.34 mg/ dL L=0.60 H=1.30 AGE 60 YEARS GFR 40.1 SODIUM 140 mmol/L L=136 H=145 POTASSIUM 4.1 mmol/ L L=3.5 H=5.1 CHLORIDE 106 mmol/L L=98 H=107 CO2 27 mmol/L L=21 H=32 CALCIUM 8.9 mg/dL L=8.5 H=10.1 AST 10 U/L L=15 H=37 ALT 21 U/L L=12 H=78 ALKALINE PHOS 100 U/ L L=50 H=136 TOTAL PROTEIN 6.9 g/ dL L=6.4 H=8.2 ALBUMIN 3.1 g/dL L=3.4 H=5.0 TOTAL BILI 0.20 mg/ dL L=0.00 H=1.00 LIPID PANEL - Collect Date/Time: 12/16/2015 16:35 Test Name Code Test Result Test Units Test Ref Range CHOLESTEROL 180 mg/ dL L=0 H=200 TRIGLYCERIDES 227 mg /dL L=30 H=150 HDL 67 mg/dL L=50 H=60 LDL, CALC 68 mg/dL L=0 H=100 VLDL 45 mg/dL L=0 H=40 CHOL/HDL RISK 2.7 RATIO L=0.0 H=4.4 PT FASTING: ? N/A CBC W/ DIFF - Collect Date/Time: 12/16/2015 16:35 Test Name Code Test Result Test Units Test Ref Range WBC 21.2 x10^3 L=4.8 H=10.8 RBC 4.31 x10^6 L=4.20 H=5.40 HEMOGLOBIN 13.3 g/ dL L=12.0 H=16.0 HEMATOCRIT 40.5 % L=37.0 H=47.0 MCV 94 fL L=80 H=100 MCH 30.9 pg L=27.0 H=33.0 MCHC 32.9 g/dL L=33.0 H=37.0 RDW 14.1 % L=11.5 H=14.5 PLATELETS 396 x10^3 L=150 H=450 MPV 7.0 fL L=7.8 H=11.0 NEUTROPHILS 85.7 % L=40.0 H=80.0 LYMPHOCYTES 7.5 % L=20.0 H=45.0 MONOCYTES 5.6 % L=0.0 H=10.0 EOSINOPHILS 0.7 % L=0.0 H=5.0 BASOPHILS 0.5 % L=0.0 H=2.0 SEG 73 %% L=40 H=80 BAND 7 %% L=0 H=5 LYMPH 9 %% L=20 H=45 MONO 7 %% L=0 H=10 EOS 0 %% L=0 H=5 BASO 0 %% L=0 H=2 ATYP LYMPH 3 %% L=0 H=10 META 0 %% L=0 H=1 REFLEX MAN DIFF YES N/A RBC MORPHOLOGY NORMAL N/A UA AUTO W/ MICRO - Collect Date/Time: 12/16/2015 16:35 Test Name Code Test Result Test Units Test Ref Range COLOR Yellow N/A NORMAL: Yellow APPEARANCE Clear N/ A NORMAL: Clear GLUCOSE Negative N/ A NORMAL: Negative BILIRUBIN Negative N /A NORMAL: Negative KETONE Trace N/A NORMAL: Negative SPEC GRAVITY 1.025 N /A NORMAL: 1.005-1.030 BLOOD Trace-in N/A NORMAL: Negative PROTEIN Negative N/ A NORMAL: Negative PH 5.5 N/A NORMAL: 5.0-8.0 UROBILINOGEN 0.2 N/ A NORMAL: Negative NITRITE Negative N/ A NORMAL: Negative LEUKOCYTES Negative N/A NORMAL: Negative MICRO RBC 2-5 N/A NORMAL: 0-2 MICRO WBC 10-20 N/A NORMAL: 0-2 BACTERIA 2+ N/A NORMAL: None-Trace EPI CELLS 5-10 N/A NORMAL: 0-15 MUCUS None Seen N/A NORMAL: None-Small AMORPHOUS None Seen N/A NORMAL: None Seen YEAST None Seen N/A NORMAL: None Seen CRYSTALS None Seen N /A NORMAL: None Seen CAST None Seen N/A NORMAL: None Seen URINE CULTURE? YES N /A CULTURE URINE - Collect Date/Time: 12/16/2015 16:35 Test Name Code Test Result Test Units Test Ref Range SPEC SOURCE: R N/A Urine Culture, Routine 630-4 Final report N/A Active Medications Unknown or Not Available. Medications Administered During Visit Unknown or Not Available. Encounters Encounter Diagnosis Diagnosis Code Start Date Cervicalgia M542 12/16/2015 Social History Smoking Status Code Start Date End Date Never smoker [id number] Patient Decision Aids Unknown or Not Available. Discharge Instructions You were admitted to [facility] on 12/16/2015 16:24 with a principal diagnosis of Cervicalgia You had the following tests done: CBC W / DIFF COMP METABOLIC CULTURE URINE LIPID PANEL UA AUTO W/ MICRO You were discharged from [facility] on 12/16/2015 16:24 Should you have any questions prior to discharge, please contact a member of your healthcare team. If you have left the hospital and have any questions, please contact your primary care physician. Chief Complaint and Reason For Visit Chief Complaint Date of Onset LAB/XRAY Function Status Unknown or Not Available. Plan of Care Unknown or Not Available. Referral/Transition of Care Unknown or Not Available.
--- OUTSIDE RECORDS SUMMARY | 2016-12-23 20:39 | XMS REPORT | CCD ---
Author Author IGLESIA ROCHA Organization Unknown Address [address] [place], [place] [phone] Phone 0 Care Team Providers Care Woodwind Instruments Inspector Name Role Phone Carter KAUR Attending Physician 0 STEPHANIA CENTENO Rounding Physician 0 Vital Signs Unknown or Not Available. Allergies Allergy Code Allergy Type Reaction Status PENICILLIN 91193 Drug allergy Active Procedures Unknown or Not Available. History of Immunizations Immunization Code Date influenza, unspecified formulation 88 Problems Unknown or Not Available. Results Unknown or Not Available. Active Medications Unknown or Not Available. Medications Administered During Visit Unknown or Not Available. Encounters Encounter Diagnosis Diagnosis Code Start Date Other allergic rhinitis J3089 08/26/2015 Social History Smoking Status Code Start Date End Date Never smoker [id number] Patient Decision Aids Unknown or Not Available. Discharge Instructions You were admitted to [facility] on 08/26/2015 with a principal diagnosis of Other allergic rhinitis. You were discharged from [facility] on 08/26/2015. Should you have any questions prior to [...]
--- OUTSIDE RECORDS SUMMARY | 2016-12-23 20:39 | XMS REPORT | Referral Summary ---
Author Author [facility] Organization [facility] Address Unknown Phone Unavailable Care Team Providers Care High School Mathematics Teacher Name Role Phone Perry Alvarez Primary Care Physician [phone] Encounter Date(s): 06/09/16 - 06/09/16 [facility] [address] [place] [address] [facility] Discharge Diagnosis: ALEJO (dyspnea on exertion) Discharge Disposition: 01-Home or Self Care Attending Physician: Bob Judge MD Admitting Physician: Bob Judge MD Vital Signs No data available for this section Problem List Condition Effective Dates Status Health [...] cervical spine1 1Performed by Dr. Pickard at [facility] Social History Social History Type Response Smoking Status Never smoker Assessment and Plan No data available for this section
[2016-12-23 20:43] VITALS: BP 133/80; PULSE 116; RESP 16; TEMP 97.9; O2SAT 96
[2016-12-23 20:48] VITALS: Ht 160 cm; Wt 95.8 kg
--- NOTE | 2016-12-23 20:48 | NUR ---
ADMISSION PATIENT ARRIVED VIA EMS A DIRECT ADMIT. PATIENT AMBULATED FROM EMS GURNEY TO BED WITH STEADY GAIT. VITAL SIGNS ARE STABLE, BUT PATIENT IS A LITTLE TACHYCARDIC. PATIENT DENIES CP, SOA, NAUSEA, VOMITING, AND PAIN AT THIS TIME. ADMISSION COMPLETED AND TELEHOSPITALIST PAGED. WILL CONTINUE TO MONITOR.
[2016-12-23] MEDS ORDERED: NORMAL SALINE 1,000 ML IV SCH (21:35)
[2016-12-23] MEDS ORDERED: OXYCODONE I.R. 5 MG TABLET PO PRN (21:45)
[2016-12-23] MEDS ORDERED: ONDANSETRON 4mg/2ml INJECTION IV PRN (21:45)
[2016-12-23] MEDS ORDERED: HYDROCODONE/APAP 5 mg/325 mg TABLET PO PRN (21:45)
[2016-12-23] MEDS ORDERED: ALLOPURINOL 300 MG TABLET PO SCH (22:00)
[2016-12-23] MEDS ORDERED: ENALAPRIL 5 MG TABLET PO SCH (22:00)
--- NOTE | 2016-12-23 22:56 | HPPDOC ---
HPI - Adult Date DATE: 12/23/16 TIME: 22:43 General Chief Complaint: difficulty speaking History of Present Illness This is a 61 y/o female who has a history of DM2 and HTN. The patient had an episode where she had a difficult time speaking and her right arm was not working normally. The symptoms began 4pm yesterday and persisted into today. The patient finally sought health care @ [facility] and was referred to [facility] for a further neurologycial workup. The patient has a history of workup for a LV thrombus 6 months ago with a negative ZACH. The patient upon arrival to [place] has only a mild expressive comonent. the patient is right handed. At this time the patient will be admitted for further evaluation of her CVA. Past Medical History Past Medical History DM2, dyslipidemia, HtN, chronic leukocytois, asthma Surgical History Patient's Surgical History: lap band, bilateral total knee, cholecystectomy, JOSEPH, kidney stone Current Medications Home Meds Active Scripts Oxycodone HCl (Roxicodone) 5 Mg Tablet, 5-15 MG PO Q3H Y for BREAKTHROUGH PAIN, #60 TAB Prov:BO MEJIA 09/24/14 Acetaminophen (Tylenol) 325 Mg Tablet, 650 MG PO QID, #100 TAB Prov:BO MEJIA 09/24/14 Reported Medications Venlafaxine HCl (Venlafaxine HCl) 100 Mg Tablet, 150 PO HS 04/12/16 Meloxicam (Meloxicam) 15 Mg Tablet, 15 MG PO DAILY, TAB 09/23/14 Potassium Chloride (Potassium Chloride) 10 Meq Capsule.er, 10 MEQ PO DAILY, CAP Take 1 capsule, by mouth, two times a day with meals 09/23/14 Fluticasone Propionate (Flonase 50 mcg/actuation Nasal Savona) 16 Gm Savona.susp, 2 SPRAY EA NOSTRIL DAILY, G 09/23/14 Albuterol Sulfate (Albuterol Sulfate Hfa) 8.5 Gm Hfa.aer.ad, 1 PUFF INH PRN, INHALER 09/22/14 Estrogens,Conjugated (Premarin) 0.9 Mg Tablet, 0.9 MG PO HS 10/14/08 Enalapril Maleate (Enalapril Maleate) 5 Mg Tablet, 5 MG PO HS 10/14/08 Allopurinol (Allopurinol) 300 Mg Tablet, 300 MG PO HS 10/14/08 Allergies: Coded Allergies: Penicillins (Verified Allergy, Intermediate, HIVES, 09/25/08) hydrocodone (Unverified Allergy, Unknown, ITCHING, 09/18/14) Family History Family History: no CVA Social History Smoking Status: Never smoker Substance Use Type: does not use Alcohol Intake: a few times a month Marital Status: Household Members: spouse Current Occupational Status: employed Advance Directives: No DPOA for Healthcare Only Review of Systems All Other Systems All Other Systems: Reviewed (remainder of 10-point ROS Neg.) Comments mild headache post occipital since yesterday. no change in vision, no change in hearing, taste or smell. no tinnitus, had increased saliva formation yesterday. never chocked difficultly speaking as noted above. no neck or jaw pain,mild shortness of breathwhichis chronic with her asthma, no abdomen pain no nausea or vomiting, no change in bowel movement, no change in urine, no increased edema, some chronic edema always, patient with right upper extremity weakness which has since resolved. Physical Exam General General Nourishment: well nourished, well developed, cachectic, adult General Body Habitus: well groomed Vital Signs Vital Signs Date Time Temp Pulse Resp B/P Pulse Ox O2 Delivery O2 Flow Rate FiO2 12/23/16 20:43 97.9 116 16 133/80 96 Height (Feet): 5 Height (Inches): 3.00 Telemetry Rhythm: Sinus Rhythm Eyes Brief: FOUND: EOMI, PERRL, other, NOT FOUND: scleral icterus Neck Brief: FOUND: midline, NOT FOUND: JVD, nuchal rigidity, other, spasm, tenderness, tracheal deviation Respiratory Brief: FOUND: clear all perez, equal bilaterally, NOT FOUND: other , rales, spasm, symmetrical, tenderness, wheezes Cardiovascular (brief) Cardiac Brief: FOUND: regular rate, regular rhythm, NOT FOUND: click, gallop, murmur, other, pedal edema, peripheral edema, rub Abdomen (brief) Abdominal Brief: FOUND: BS normo active x4, soft, NOT FOUND: distended, other, tender Musculoskeletal (brief) Musculoskeletal Brief: NOT FOUND: deformity, extremities move equally, loss of motion, other, spasm, tenderness Neurologic (brief) Comments CN 2 through 12 intact. (except for some very mild residule word searing). EOMI , strenght 4 plus/5 upper and lower symetrical finger to nose intact, heel to celeste intact, sensory grossly intact. Neurologic RN Documented GCS Eye Opening: Verbal: Motor: Total: Psychiatric (brief) FOUND: alert, attentive, normal affect, oriented Assessment & Plan Assessment 1. CVA acute POA: this patient is sl residule expressive component. no other findings. CT head outside facility normal. obs admit. neuro checks, MR in am , echo and carotid in the am. (note had ZACH 6 months ago). aspirin started, continue statin (need to confirm with med rec if on, if not start). further recommendations to follow after workup in am 2. HTN chronic POA: patient on b blcoker, isabel inhibitor. note might want slightly higher blood pressures. monitor and adjust as indicated 3. dM2 chronic POA: correctional plan. adjust meds as indicated. check A1C 4. chronic leukocytosis: POA: hematology following ? precurso to MDS. 5 DVT ppx; SCD, heparin observation admission DVT Prophylaxis: SCD'S Code Status Full Code Hospital Course Summary Disclaimer The hospital course summary below is not to be considered part of the above Progress Note. BO SUTTON MD December 23, 2016 22:47
--- NOTE | 2016-12-23 23:28 | NUR ---
PROVIDER NOTIFICATION Sent a TigerText to Dr Blackman to notify that patient had arrived with a locked piggyback that was labeled "1G Rocephin". Dr Blackman gave a verbal order to give 1g Rocephin IV Q 24 hours. Order entered.
[2016-12-23] MEDS ORDERED: CEFTRIAXONE 1 GRAM INJECTION IM ONE (23:30)
[2016-12-24] MEDS ORDERED: CEFTRIAXONE I.V. (ER USE ONLY) 1 G in NORMAL SALINE 100 ML IV ONE ×2
[2016-12-24 00:13] VITALS: BP 151/77; PULSE 102; RESP 16; TEMP 96.8; O2SAT 94
[2016-12-24] MEDS ORDERED: CEFTRIAXONE 1 GRAM INJECTION IV SCH ×2 (00:15→09:00)
[2016-12-24 04:12] VITALS: BP 130/75; PULSE 100; RESP 16; TEMP 96.2; O2SAT 95
[2016-12-24 04:46] LABS: HCT - HEMATOCRIT 37.7 % (36-46); HGB - HEMOGLOBIN 12.2 GM/DL (12-16); MEAN CORPUSCULAR HGB 31.4 UUG (26-34); MEAN CORPUSCULAR HGB CONC(MCHC 32.4 GM/DL (31-37); MEAN CORPUSCULAR VOLUME 97.2 UM3 (80-100); MEAN PLATELET VOLUME 9.1 UM3 (9.4-12.4); RED BLOOD COUNT 3.88 M/MM3 (4.00-5.20); WBC - WHITE BLOOD COUNT 19.1 T/MM3 (4.5-11.0)
[2016-12-24 04:56] LABS: ANION GAP 10 MEQ/L (5-15); BUN/CREATININE RATIO 26 RATIO (6-26); CALCIUM 8.5 MG/DL (8.4-10.2); CHLORIDE 107 MEQ/L (98-107); CO2 - CARBON DIOXIDE 24 MEQ/L (22-30); GLOMERULAR FILTRATION RATE 56; GLUCOSE 147 MG/DL (65-110); POTASSIUM 4.4 MEQ/L (3.6-5); SODIUM 141 MEQ/L (134-144)
[2016-12-24 05:04] LABS: BAND NEUTROPHILS # 0.2 T/MM3; LYMPHOCYTES # (MANUAL) 3.2 T/MM3 (1-4.8); NEUTROPHILS #(MANUAL)-ABSOLUTE 15.7 T/MM3 (1.8-7.7); TOTAL CELLS COUNTED 100 %
[2016-12-24 05:12] LABS: HEMOGLOBIN A1C 6.2 % (6.1-7.9)
--- NOTE | 2016-12-24 05:24 | NUR ---
SHIFT SUMMARY PATIENT IS ALERT AND ORIENTED X3 THIS SHIFT. PATIENT HAS BEEN TACHYCARDIC THIS SHIFT, OTHERWISE VITAL SIGNS ARE STABLE ON ROOM AIR. PATIENT AMBULATES WITH STAND BY. PATIENT HAS DENIED PAIN, NAUSEA, VOMITING, AND SOA THIS SHIFT. PATIENT HAS HAD EQUAL STRENGTH IN EXTREMITIES AND HAD NO VERBAL DIFFICULTIES THIS SHIFT. PATIENT HAS NOT SLEPT, THOUGH SHE STATES THIS IS NORMAL OR HER. WILL CONTINUE TO MONITOR.
[2016-12-24 05:25] LABS: THYROID STIM HORMONE-TSH 0.55 MIU/L (0.47-4.68)
[2016-12-24 07:31] VITALS: BP 138/80; PULSE 88; RESP 20; O2SAT 94
[2016-12-24 07:38] VITALS: TEMP 97.2
--- NOTE | 2016-12-24 08:27 | NUR ---
RACHNA HAM IS 4. Addendum: 12/24/16 at 0827 by OG SALCEDO SW Amended: Links added.
[2016-12-24] MEDS: ACETAMINOPHEN 325 MG TABLET PO SCH ×2 (09:00→13:00)
[2016-12-24] MEDS ORDERED: ASPIRIN *EC* 325mg TABLET PO SCH (09:00)
--- NOTE | 2016-12-24 10:23 | NUR ---
CM THIS WORKER SPOKE WITH PT, INTRODUCED SELF, EXPLAINED ROLE, PROVIDED CONTACT INFO. PT STATED SHE LIVES IN [place] WITH SPOUSE DAVIDSON. SHE SAID HER DC PLAN IS TO RETURN HOME, AND SHE REALLY HOPES SHE CAN BE RELEASED TODAY. SHE SAID SHE HAS NO HOME HEALTH, NO NEEDS, NO QUESTIONS/CONCERNS FOR THIS WORKER. ENCOURAGED HER TO CALL IF QUESTIONS/NEEDS DO ARISE, AND SHE SAID OK. Addendum: 12/24/16 at 1025 by OG WILDER Amended: Links added.
[2016-12-24] MEDS ORDERED: GADOBUTROL 10mMol/10ml INJECTION IV ONE (12:04)
[2016-12-24] MEDS ORDERED: SALINE FLUSH 10ml SYRINGE ONE (12:04)
[2016-12-24 13:02] VITALS: BP 144/88; PULSE 98; RESP 18; TEMP 97.6; O2SAT 99
--- NOTE | 2016-12-24 13:25 | NUR ---
PATIENT REQUESTING INFORMATION FOR D/C PLAN AND TIME. S/W DR. VARGAS. SHE IS AWAITING MRI READ FROM MRI DONE EARLIER TODAY. NOTIFIED PATIENT OF UPDATE.
[2016-12-24] MEDS ORDERED: CIPR-280 PO (14:22)
[2016-12-24] MEDS ORDERED: ASPI-13 PO (14:22)
[2016-12-24] MEDS ORDERED: SIMV40TA5 PO (14:23)
--- NOTE | 2016-12-24 14:30 | NUR ---
SHIFT SUMMARY PATIENT AOX3, DENIES PAIN. UP BY HERSELF. STABLE GAIT. NEURO CHECKS Q2 HAVE BEEN WNL. VITALS STABLE. PATIENT WENT FOR MRI AT NOON. PATIENT AND AWAITING D/C TODAY. ATE BREAKFAST AND LUNCH WELL.
--- NOTE | 2016-12-24 14:56 | NUR ---
DISCHARGE NOTE PATIENT STABLE, D/C INSTRUCTIONS, TIA HANDOUT, HYPERLIPIDEMIA HANDOUT, D/C MEDICATION HANDOUT, NEW MEDICATION INFORMATION HANDOUT AND PATIENT HEALTH SUMMARY GIVEN TO PATIENT. D/W EACH WITH PATIENT AND , PATIENT VERBALIZED UNDERSTANDING. IV SL D/C'ED. NO S/S BLEEDING NOTED. PRESSURE APPLIED. ENTRY LEVEL DRAFTER REMOVED. ARM BAND REMOVED. PATIENT LEFT MEDICAL UNIT AMBULATORY WITH RN AND OUT ER EXIT TO PRIVATE VEHICLE. TO BE TAKEN HOME IN PRIVATE VEHICLE BY .
--- NOTE | 2016-12-24 15:05 | DSPDOC ---
General Date Date DATE: 12/24/16 TIME: 14:52 Attending Physician Kristyn Orozco MD Admitting Physician Gabby Gonzales MD Consulting Physician Admitting Diagnosis cva Discharge Diagnosis Expressive aphasia/TIA Complicated UTI Nephrolithiasis Hypertension Laboratory Laboratory Tests Test 12/24/16 04:20 White Blood Count 19.1T/MM3 (4.5-11.0) Red Blood Count 3.88M/MM3 (4.00-5.20) Hemoglobin 12.2GM/DL (12-16) Hematocrit 37.7% (36-46) Mean Corpuscular Volume 97.2UM3 (80-100) Mean Corpuscular Hemoglobin 31.4UUG (26-34) Mean Corpuscular Hemoglobin Concent 32.4GM/DL (31-37) RDW Standard Deviation 56.8FL (36.9-50.2) Platelet Count 331T/MM3 (130-400) Mean Platelet Volume 9.1UM3 (9.4-12.4) Immature Granulocyte % (Auto) % (0.0-0.5) Neutrophils (%) (Auto) % (33-66) Lymphocytes (%) (Auto) % (23-45) Monocytes (%) (Auto) % (0-9.0) Eosinophils (%) (Auto) % (0-4) Basophils (%) (Auto) % (0-2) Absolute Immature Granulocyte (auto T/MM3 (0.00-0.03) Absolute Neutrophils (auto) T/MM3 (1.8-7.7) Absolute Lymphocytes (auto) T/MM3 (1-4.8) Absolute Monocytes (auto) T/MM3 (0-0.8) Absolute Eosinophils (auto) T/MM3 (0-0.5) Absolute Basophils (auto) T/MM3 (0-0.2) Neutrophils % (Manual) 82.0% (33-66) Band Neutrophils % 1.0% (0-6) Lymphocytes % (Manual) 17.0% (23-45) Absolute Neutrophils (Manual) 15.7T/MM3 (1.8-7.7) Band Neutrophils # 0.2T/MM3 Lymphocytes # (Manual) 3.2T/MM3 (1-4.8) Red Cell Morphology Comment Normal Turbidity < 20 (0-20) Sodium Level 141MEQ/L (134-144) Potassium Level 4.4MEQ/L (3.6-5) Chloride Level 107MEQ/L (98-107) Carbon Dioxide Level 24MEQ/L (22-30) Anion Gap 10MEQ/L (5-15) Blood Urea Nitrogen 26.0MG/DL (7-17) Creatinine 1.0MG/DL (0.7-1.2) Glomerular Filtration Rate Calc 56 BUN/Creatinine Ratio 26RATIO (6-26) Glucose Level 147MG/DL (65-110) Hemoglobin A1c 6.2% (6.1-7.9) Calculated Osmolality 279MOSM/KG (261-280) Calcium Level 8.5MG/DL (8.4-10.2) Icterus Index < 2 (0-7) Thyroid Stimulating Hormone (TSH) 0.55MIU/L (0.47-4.68) Chemistry Specimen Hemolysis < 15 (0-25) Microbiology Urine studies including culture were done in [place] prior to transfer and are pending at the time of discharge. Radiology MRI brain done prior to discharge; preliminary report reviewed and states "Abnormal intensity in midbrain and mihaela, likely nonacute. Central pontine myelinolysis not excludable." Final report pending, patient remains asymptomatic. History of Present Illness From admission H&P: "This is a 61 y/o female who has a history of DM2 and HTN. The patient had an episode where she had a difficult time speaking and her right arm was not working normally. The symptoms began 4pm yesterday and persisted into today. The patient finally sought health care @ [facility] and was referred to [facility] for a further neurologycial workup. The patient has a history of workup for a LV thrombus 6 months ago with a negative ZACH. The patient upon arrival to [place] has only a mild expressive comonent. the patient is right handed. At this time the patient will be admitted for further evaluation of her CVA." Hospital Course The patient was admitted overnight due to concern for stroke but symptoms resolved prior to arrival at our facility. This morning she is requesting discharge and has no complaints. She has received IV rocephin due to passing a kidney stone yesterday and dysuria/frequency with leukocytosis. She had a urine culture done in [place] prior to transfer that is pending. She has frequent nephrolithiasis and UTI per her report and takes ciprofloxacin at home often. She agreed to stay for MRI of the brain, which was completed with prelminary radiology report as documented. Final report is still pending at this time. She is already on simvastatin at home, is agreeable to a course of ciprofloxacin x 7 days and starting a daily 325 mg ASA for secondary stroke prevention. I have recommended she follow up with her PCP to discuss the possibility of surveillance carotid doppler study and TTE but she would prefer not to remain here to have the testing done. She has an appointment Monday morning with her PCP and agrees to return if her symptoms recur in the interim. Lipid panel was drawn this AM and is also pending at the time of discharge. Problems: DVT Prophylaxis: Lovenox Code Status Full Code Home Meds Active Scripts Simvastatin (Simvastatin) 40 Mg Tablet, 40 MG PO HS for 30 Days, #30 TAB Take 1 tablet, by mouth, 1 time a day (at BEDTIME). Prov:KRISYTN OROZCO MD 12/24/16 Aspirin/Calcium Carbonate/Mag (Aspirin Buffered 325 mg Tab) 325 Mg Tablet, 1 TAB PO DAILY for 30 Days, #30 BOTTLE Prov:KRISTYN OROZCO MD 12/24/16 Ciprofloxacin HCl (Ciprofloxacin HCl) 500 Mg Tablet, 1 TAB PO Q12H for 7 Days, # 14 TAB Prov:KRISTYN OROZCO MD 12/24/16 Oxycodone HCl (Roxicodone) 5 Mg Tablet, 5-15 MG PO Q3H Y for BREAKTHROUGH PAIN, #60 TAB Prov:BO MEJIA 09/24/14 Acetaminophen (Tylenol) 325 Mg Tablet, 650 MG PO QID, #100 TAB Prov:BO MEJIA 09/24/14 Reported Medications Venlafaxine HCl (Venlafaxine HCl) 100 Mg Tablet, 150 PO HS 04/12/16 Meloxicam (Meloxicam) 15 Mg Tablet, 15 MG PO DAILY, TAB 09/23/14 Potassium Chloride (Potassium Chloride) 10 Meq Capsule.er, 10 MEQ PO DAILY, CAP Take 1 capsule, by mouth, two times a day with meals 09/23/14 Fluticasone Propionate (Flonase 50 mcg/actuation Nasal [place]) 16 Gm [place].susp, 2 SPRAY EA NOSTRIL DAILY, G 2/10/15 Albuterol Sulfate (Albuterol Sulfate Hfa) 8.5 Gm Hfa.aer.ad, 1 PUFF INH PRN, INHALER 09/22/14 Estrogens,Conjugated (Premarin) 0.9 Mg Tablet, 0.9 MG PO HS 10/14/08 Enalapril Maleate (Enalapril Maleate) 5 Mg Tablet, 5 MG PO HS 10/14/08 Allopurinol (Allopurinol) 300 Mg Tablet, 300 MG PO HS 10/14/08 Face to Face Encounter I met with patient on the day of dismissal and discussed follow up appointments , medications, and safety plan. VSS as reviewed in [facility] awake, alert, NAD, conversant and fluent HEENT NCAT, MMM, anicteric sclerae CV regular, nontachy RESP clear bilaterally without rales, rhonchi, wheezing GI soft, NTTP/ND, +BS throughout EXT no edema, WWP No rashes, abrasions, excoriations to exposed skin CN 2-12 intact without focal deficits, normal gait, normal speech and attention Discharge Disposition Home with her . Copies To 1: SEGUNDO Johnson AMANDA M MD December 24, 2016 14:56
[2016-12-24] MEDS ORDERED: CEFTRIAXONE 1 G in NORMAL SALINE 100 ML IV SCH (18:00)
[2016-12-24] MEDS ORDERED: ATORVASTATIN 10 MG TABLET PO SCH (22:00)
--- NOTE | 2016-12-25 10:49 | DI ---
Indication: ITS.REASON: expressive aphasia right sided weakness PROCEDURE: MRI BRAIN W/WO CONTRAST: Encounter: Initial Comparisons: None Technique: Multiplanar, multisequence, MR imaging of the head with and without contrast was acquired. Contrast: 9 mL of Gadavist FINDINGS: Acute diffusion restriction is noted in the left posterior frontal lobe. This has corresponding T2/FLAIR hyperintensity as expected. The ventricles are of normal size, shape, and contour for the patient's age. Increased T2 signal noted in the mihaela and midbrain as well as uncertain chronicity and significance. There are small nonspecific punctate areas of T2-weighted and T2 FLAIR weighted signal abnormality in the deep frontoparietal white matter that most likely represent small vessel ischemic disease. This is of a degree that is considered to be normal for the patient's age. The brain stem, cerebellum, and cerebral hemispheres otherwise have a normal morphologic appearance as well as MR signal intensity on all pulse sequences. Following intravenous administration of contrast, no areas of abnormal enhancement are evident. There is no evidence of an intracranial mass lesion, intracranial hemorrhage, or hydrocephalus. The visualized portions of the orbits, calvarium, and skull base demonstrate no significant abnormality. Mucus retention cysts in both maxillary sinuses. IMPRESSION: 1. 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 2. Abnormal signal in the mihaela and midbrain could be due to acute or old insult. Central pontine myelinolysis can have this appearance. Recommend clinical and laboratory correlation. There is a preliminary report by [facility]. The preliminary report does not mention the acute infarct in the left hemisphere. .
[2016-12-27 00:59] LABS: LDL CHOLESTEROL,CALCULATED 95.2 (66-159); RISK FACTOR 2.9 RATIO (0-4.0); VLDL CHOLESTEROL 29.8 MG/DL (0-28)
== END 2016-12-24 14:56 | disposition home or self-care (01) ==
LOC: MED 20:30 → UNDOADMOB 20:30 → MED 21:45 → UNDODISOB 12-24 14:56
PROVIDERS: ADMIT Internal Medicine; ATTEND Internal Medicine
DX: G45.9 Transient cerebral ischemic attack, unspecified (principal); R47.01 Aphasia; N39.0 Urinary tract infection, site not specified; N20.0 Calculus of kidney; I10 Essential (primary) hypertension; E11.9 Type 2 diabetes mellitus without complications; J45.909 Unspecified asthma, uncomplicated; Z79.1 Long term (current) use of non-steroidal anti-inflammatories (NSAID); Z79.899 Other long term (current) drug therapy; Z79.890 Hormone replacement therapy
CPT/HCPCS: 36415; 70553; 80048; 80061; 83036; 84443; 85025; 96360; 96361; 99218; A9585; J0696; J7030

== ENCOUNTER → 2017-01-10 | Outpatient (CLI) | payer BC ==
[~2017-01-10] MED LIST changes: +ASPI-13 PO; +CIPR-280 PO; +SIMV40TA5 PO
[2017-01-10 15:43] LABS: HGB - HEMOGLOBIN 13.9 GM/DL (12-16); MEAN CORPUSCULAR HGB 31.9 UUG (26-34); MEAN CORPUSCULAR HGB CONC(MCHC 32.3 GM/DL (31-37); MEAN CORPUSCULAR VOLUME 98.6 UM3 (80-100); MEAN PLATELET VOLUME 9.1 UM3 (9.4-12.4); RED BLOOD COUNT 4.36 M/MM3 (4.00-5.20)
[2017-01-10 15:45] LABS: WBC - WHITE BLOOD COUNT 25.3 T/MM3 (4.5-11.0)
[2017-01-10 15:56] LABS: ALBUMIN 3.7 G/DL (3.5-5.0); ALBUMIN/GLOBULIN RATIO 1.3 RATIO (1.1-2.2); ALKALINE PHOSPHATASE 104 U/L (38-126); ALT (SGPT) 36 U/L (9-52); ANION GAP 10 MEQ/L (5-15); AST (SGOT) 16 U/L (14-36); BUN/CREATININE RATIO 24 RATIO (6-26); C-REACTIVE PROTEIN 5.2 MG/L (0-9); CALCIUM 8.9 MG/DL (8.4-10.2); CHLORIDE 106 MEQ/L (98-107); CO2 - CARBON DIOXIDE 25 MEQ/L (22-30); CREATININE 1.2 MG/DL (0.7-1.2); GLOMERULAR FILTRATION RATE 45; GLUCOSE 123 MG/DL (65-110); LDH 417 U/L (313-618); MAGNESIUM 1.8 MG/DL (1.6-2.3); POTASSIUM 4.6 MEQ/L (3.6-5); SODIUM 141 MEQ/L (134-144); TOTAL PROTEIN 6.5 G/DL (6.3-8.2)
[2017-01-10 16:00] LABS: BASOPHILS # (MANUAL) 0.3 T/MM3 (0-0.2); TOTAL CELLS COUNTED 100 %
[2017-01-10 16:01] LABS: HOWELL-JOLLY BODIES 1+
[2017-01-10 16:03] LABS: IGA - IMMUNOGLOBULIN A 276.31 MG/DL (70-400); IGM - IMMUNOGLOBULIN M 109.06 MG/DL (40-230)
== END ==
LOC: LAB 15:28
PROVIDERS: ATTEND Internal Medicine Hematology & Oncology
DX: D72.828 Other elevated white blood cell count (principal)
CPT/HCPCS: 36415; 80053; 82784; 83615; 83735; 83883; 84155; 84165; 85025; 85652; 86140; 86334